=== PATIENT | male | born 1940 | race Caucasian/White ===

== ENCOUNTER 2018-12-16 12:54 | Observation (INO) ==
--- NOTE | 2018-12-16 13:00 | Emergency Department Note ---
Disposition Clinical Impression: Synovitis, Septic arthritis of right foot Disposition: Admitted As Inpatient Condition: Fair Time of Disposition: 19:47 General Adult HPI - General Stated complaint: Anemia Time Seen by Provider: 12/16/18 12:56 - Related Data Home Medications Medication Instructions Recorded Confirmed Ferrous Gluconate 324 mg PO DAILY 12/16/18 12/16/18 OxyCODONE/APAP 5/325 [Percocet 1 each PO Q8HR PRN 12/16/18 12/16/18 5/325 MG] Tamsulosin HCl [Flomax] 0.4 mg PO DAILY 12/16/18 12/16/18 Allergies Allergy/AdvReac Type Severity Reaction Status Date / Time No Known Allergies Allergy Verified 12/16/18 13:13 Course Vital Signs Temperature 98.9 F 12/16/18 12:58 Pulse Rate 65 12/16/18 12:58 Respiratory Rate 18 12/16/18 12:58 Blood Pressure 148/73 12/16/18 12:58 O2 Sat by Pulse Oximetry 95 12/16/18 12:58 Temperature 98.7 F 12/16/18 22:22 Pulse Rate 72 12/16/18 22:22 Respiratory Rate 14 12/16/18 22:22 Blood Pressure 125/73 12/16/18 22:22 O2 Sat by Pulse Oximetry 95 12/16/18 22:22 Oxygen Delivery Oxygen Delivery Room Air Medical Decision Making - Lab Data Result diagrams: 12/16/18 13:20 12/16/18 13:20 Lab Results 12/16/18 12/16/18 12/16/18 Range/Units 13:20 13:20 13:30 WBC 7.8 (4.3-11.1) K/mcL RBC 3.04 L (4.19-5.50) M/mcL Hgb 7.2 L (12.9-16.9) g/dL Hct 25.0 L (37.5-50.1) % MCV 82.2 L (83.0-100.0) fL MCH 23.7 L (28.0-33.3) pg MCHC 28.8 L (31.6-35.5) g/dL RDW 16.8 H (11.5-14.5) % Plt Count 486 H (140-400) K/mcL MPV 9.0 L (9.4-12.4) fL Immature Gran % 0.3 (0-4) % Seg Neutrophils % 60.6 % Lymphocytes % 22.8 % Monocytes % 13.6 % Eosinophils % 2.4 % Basophils % 0.3 % Neutrophils # 4.7 (1.6-8.9) K/mcL Lymphocytes # 1.8 (0.6-4.6) K/mcL Monocytes # 1.1 (0.0-1.3) K/mcL Eosinophils # 0.2 (0.0-0.6) K/mcL Basophils # 0.0 (0.0-0.2) K/mcL Platelet Estimate Slight increase H (Normal) Hypochromasia Present A (Not Present) Ovalocytes 1+ A (Not Present) Sodium 135 L (136-145) mEq/L Potassium 4.1 (3.5-5.1) mEq/L Chloride 102 (98-107) mEq/L Carbon Dioxide 26 (23-29) mEq/L BUN 17 (8-23) mg/dL Creatinine 0.97 (0.70-1.30) mg/dL Est GFR ( Amer) > 60 (> 60) Est GFR (Non-Af Amer) > 60 (> 60) BUN/Creatinine Ratio 18 (6-26) Glucose 159 H (70-105) mg/dL Calculated Osmolality 285 (280-300) Calcium 8.7 (8.6-10.3) mg/dL Total Bilirubin 0.4 (0.3-1.0) mg/dL Direct Bilirubin 0.2 (0.0-0.2) mg/dL Indirect Bilirubin 0.2 (0.0-1.2) mg/dL AST 18 (13-39) Units/L ALT 10 (7-52) Units/L Alkaline Phosphatase 86 (34-104) Units/L Troponin I 0.03 (< 0.04) ng/mL Serum Total Protein 6.7 (6.4-8.9) g/dL Albumin 3.4 L (3.5-5.7) g/dL Globulin 3.3 (2.4-3.5) g/dL Albumin/Globulin Ratio 1.0 L (1.1-2.2) Lipase 12 (11-82) Units/L Stool Occult Bld Scrn Negative (Negative) Blood Type Antibody Screen 07/19/19 Range/Units 15:50 WBC (4.3-11.1) K/mcL RBC (4.19-5.50) M/mcL Hgb (12.9-16.9) g/dL Hct (37.5-50.1) % MCV (83.0-100.0) fL MCH (28.0-33.3) pg MCHC (31.6-35.5) g/dL RDW (11.5-14.5) % Plt Count (140-400) K/mcL MPV (9.4-12.4) fL Immature Gran % (0-4) % Seg Neutrophils % % Lymphocytes % % Monocytes % % Eosinophils % % Basophils % % Neutrophils # (1.6-8.9) K/mcL Lymphocytes # (0.6-4.6) K/mcL Monocytes # (0.0-1.3) K/mcL Eosinophils # (0.0-0.6) K/mcL Basophils # (0.0-0.2) K/mcL Platelet Estimate (Normal) Hypochromasia (Not Present) Ovalocytes (Not Present) Sodium (136-145) mEq/L Potassium (3.5-5.1) mEq/L Chloride (98-107) mEq/L Carbon Dioxide (23-29) mEq/L BUN (8-23) mg/dL Creatinine (0.70-1.30) mg/dL Est GFR ( Amer) (> 60) Est GFR (Non-Af Amer) (> 60) BUN/Creatinine Ratio (6-26) Glucose (70-105) mg/dL Calculated Osmolality (280-300) Calcium (8.6-10.3) mg/dL Total Bilirubin (0.3-1.0) mg/dL Direct Bilirubin (0.0-0.2) mg/dL Indirect Bilirubin (0.0-1.2) mg/dL AST (13-39) Units/L ALT (7-52) Units/L Alkaline Phosphatase (34-104) Units/L Troponin I (< 0.04) ng/mL Serum Total Protein (6.4-8.9) g/dL Albumin (3.5-5.7) g/dL Globulin (2.4-3.5) g/dL Albumin/Globulin Ratio (1.1-2.2) Lipase (11-82) Units/L Stool Occult Bld Scrn (Negative) Blood Type O NEGATIVE Antibody Screen NEGATIVE Attestation Statement - Attestation Attestation: I reviewed the residents documentation and agree with the residents assessment and plan of care. I have personally had face to face time with the patient. (Brief History, Brief Exam, and MDM) I personally supervised and was present for the elliott/critical portions of the following procedures completed by the resident: (add procedures performed here). [id number] time provided Patient arrives as a transfer from the [facility] for concern of anemia. Patient takes no blood thinners. He denies hematochezia or melena. His right foot is markedly swollen and he states that this has been that way for many years.
[2018-12-16] MEDS ORDERED: Isovue-370 500 ML BOTTLE IVP ONE ×2 (13:06→13:10)
--- NOTE | 2018-12-16 13:07 | Emergency Department Note ---
Disposition Clinical Impression: Synovitis Septic arthritis of right foot Qualifiers: Septic arthritis organism: due to unspecified organism Qualified Code(s): M00.9 - Pyogenic arthritis, unspecified Disposition: Admitted As Inpatient Condition: Fair Time of Disposition: 19:47 General Adult HPI - General Stated complaint: Anemia Time Seen by Provider: 12/16/18 12:56 Nursing Notes Reviewed: Yes Vital Signs Reviewed: Yes - History of Present Illness HPI Narrative: 78-year-old male presents emergency department with concern for anemia, right lower foot swelling and redness. Patient denies any history of diabetes mellitus, but states that he has had some issues with his foot for quite some time now. It has gotten worse over the last week. Patient reports history of GI bleed, but not actively bleeding at this time. Patient also reports some epigastric discomfort. States that he feels as if his abdomen has been growing. - Related Data Home Medications Medication Instructions Recorded Confirmed Ferrous Gluconate 324 mg PO DAILY 12/16/18 12/16/18 OxyCODONE/APAP 5/325 [Percocet 1 each PO Q8HR PRN 12/16/18 12/16/18 5/325 MG] Tamsulosin HCl [Flomax] 0.4 mg PO DAILY 12/16/18 12/16/18 Allergies Allergy/AdvReac Type Severity Reaction Status Date / Time No Known Allergies Allergy Verified 12/16/18 13:13 All systems ED: reviewed and negative except as stated. Review of Systems: As Per HPI Constitutional: Denies: fever Cardiovascular: Denies: chest pain Respiratory: Denies: cough, dyspnea Gastrointestinal: Reports: abdominal pain. Denies: nausea, vomiting, melena, hematochezia Genitourinary: Denies: urgency, dysuria, frequency Musculoskeletal: Reports: other (Right foot pain and swelling) Neurological: Denies: numbness, paresthesias Past Medical History - Past Medical History Attestation: Yes The following information was validated with the patient. Physical Exam - General Limitations: no limitations General appearance: alert, in no apparent distress - Head Head exam: normocephalic - Eye Eye exam: Present: EOMI. Absent: scleral icterus - ENT ENT exam: mucous membranes moist - Neck Neck exam: Present: trachea midline - Chest Chest inspection: Present: symmetric chest wall rise - Respiratory Respiratory exam: Present: normal lung sounds bilaterally. Absent: respiratory distress, accessory muscle use - Cardiovascular Cardiovascular exam: Present: regular rate, normal rhythm, normal heart sounds - Abdominal Exam Abdominal exam: Present: soft, Non-Tender. Absent: distention, guarding, rebound, rigidity - Extremities Exam Extremities exam: Present: normal capillary refill, other (Right foot appears very swollen, there is an opening on the first MTP without drainage, erythema.) Course Vital Signs Temperature 98.9 F 12/16/18 12:58 Pulse Rate 65 12/16/18 12:58 Respiratory Rate 18 12/16/18 12:58 Blood Pressure 148/73 12/16/18 12:58 O2 Sat by Pulse Oximetry 95 12/16/18 12:58 Temperature 98.6 F 12/16/18 19:00 Pulse Rate 79 12/16/18 19:00 Respiratory Rate 14 12/16/18 19:00 Blood Pressure 135/77 12/16/18 19:00 O2 Sat by Pulse Oximetry 92 12/16/18 19:00 Oxygen Delivery Oxygen Delivery Room Air Medical Decision Making - [facility] Narrative Medical decision making narrative: 78-year-old male presents emergency Department with right foot swelling, epigastric abdominal discomfort, concern for anemia. Patient hemodynamically stable not in acute distress. Obtain CBC, Hemoccult, CT scan of abdomen and pelvis, CT scan of the right lower extremity. CT scan of abdomen and pelvis revealed no evidence of acute intra-abdominal or pelvic abnormality. This CT revealed collapse of the midfoot and concern for extensive synovitis as well as septic arthritis. I spoke with the urology nurse cardiac monitor technician who stated to start vancomycin and Zosyn and he will see the patient on the floor. Patient hemodynamically stable at that time. Abdomen/Pelvis CT 12/16/18 13:05 IMPRESSION: 1. No acute intra-abdominal process identified. 2. Redemonstration of colonic interposition. Correlate clinically to exclude Chilaiditi syndrome. 3. Moderate amount of stool present throughout the colon. 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 Extensive synovitis with soft tissue swelling also likely related to neuropathic arthropathy. Superimposed septic arthritis and cellulitis is in the differential. 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 D/ / 12/16/2018 15:46:00 Bart Brown MD / umberto Interpreting Provider: Bart Brown MD Chest X-Ray 12/16/18 19:18 IMPRESSION: No acute cardiopulmonary disease. D/ / Franki Marks MD / Franki Marks MD Interpreting Provider: Franki Marks MD - Lab Data Result diagrams: 12/16/18 13:20 12/16/18 13:20 Lab Results 12/16/18 12/16/18 12/16/18 Range/Units 13:20 13:20 13:30 WBC 7.8 (4.3-11.1) K/mcL RBC 3.04 L (4.19-5.50) M/mcL Hgb 7.2 L (12.9-16.9) g/dL Hct 25.0 L (37.5-50.1) % MCV 82.2 L (83.0-100.0) fL MCH 23.7 L (28.0-33.3) pg MCHC 28.8 L (31.6-35.5) g/dL RDW 16.8 H (11.5-14.5) % Plt Count 486 H (140-400) K/mcL MPV 9.0 L (9.4-12.4) fL Immature Gran % 0.3 (0-4) % Seg Neutrophils % 60.6 % Lymphocytes % 22.8 % Monocytes % 13.6 % Eosinophils % 2.4 % Basophils % 0.3 % Neutrophils # 4.7 (1.6-8.9) K/mcL Lymphocytes # 1.8 (0.6-4.6) K/mcL Monocytes # 1.1 (0.0-1.3) K/mcL Eosinophils # 0.2 (0.0-0.6) K/mcL Basophils # 0.0 (0.0-0.2) K/mcL Platelet Estimate Slight increase H (Normal) Hypochromasia Present A (Not Present) Ovalocytes 1+ A (Not Present) Sodium 135 L (136-145) mEq/L Potassium 4.1 (3.5-5.1) mEq/L Chloride 102 (98-107) mEq/L Carbon Dioxide 26 (23-29) mEq/L BUN 17 (8-23) mg/dL Creatinine 0.97 (0.70-1.30) mg/dL Est GFR ( Amer) > 60 (> 60) Est GFR (Non-Af Amer) > 60 (> 60) BUN/Creatinine Ratio 18 (6-26) Glucose 159 H (70-105) mg/dL Calculated Osmolality 285 (280-300) Calcium 8.7 (8.6-10.3) mg/dL Total Bilirubin 0.4 (0.3-1.0) mg/dL Direct Bilirubin 0.2 (0.0-0.2) mg/dL Indirect Bilirubin 0.2 (0.0-1.2) mg/dL AST 18 (13-39) Units/L ALT 10 (7-52) Units/L Alkaline Phosphatase 86 (34-104) Units/L Troponin I 0.03 (< 0.04) ng/mL Serum Total Protein 6.7 (6.4-8.9) g/dL Albumin 3.4 L (3.5-5.7) g/dL Globulin 3.3 (2.4-3.5) g/dL Albumin/Globulin Ratio 1.0 L (1.1-2.2) Lipase 12 (11-82) Units/L Stool Occult Bld Scrn Negative (Negative) Blood Type Antibody Screen 12/16/18 Range/Units 15:50 WBC (4.3-11.1) K/mcL RBC (4.19-5.50) M/mcL Hgb (12.9-16.9) g/dL Hct (37.5-50.1) % MCV (83.0-100.0) fL MCH (28.0-33.3) pg MCHC (31.6-35.5) g/dL RDW (11.5-14.5) % Plt Count (140-400) K/mcL MPV (9.4-12.4) fL Immature Gran % (0-4) % Seg Neutrophils % % Lymphocytes % % Monocytes % % Eosinophils % % Basophils % % Neutrophils # (1.6-8.9) K/mcL Lymphocytes # (0.6-4.6) K/mcL Monocytes # (0.0-1.3) K/mcL Eosinophils # (0.0-0.6) K/mcL Basophils # (0.0-0.2) K/mcL Platelet Estimate (Normal) Hypochromasia (Not Present) Ovalocytes (Not Present) Sodium (136-145) mEq/L Potassium (3.5-5.1) mEq/L Chloride (98-107) mEq/L Carbon Dioxide (23-29) mEq/L BUN (8-23) mg/dL Creatinine (0.70-1.30) mg/dL Est GFR ( Amer) (> 60) Est GFR (Non-Af Amer) (> 60) BUN/Creatinine Ratio (6-26) Glucose (70-105) mg/dL Calculated Osmolality (280-300) Calcium (8.6-10.3) mg/dL Total Bilirubin (0.3-1.0) mg/dL Direct Bilirubin (0.0-0.2) mg/dL Indirect Bilirubin (0.0-1.2) mg/dL AST (13-39) Units/L ALT (7-52) Units/L Alkaline Phosphatase (34-104) Units/L Troponin I (< 0.04) ng/mL Serum Total Protein (6.4-8.9) g/dL Albumin (3.5-5.7) g/dL Globulin (2.4-3.5) g/dL Albumin/Globulin Ratio (1.1-2.2) Lipase (11-82) Units/L Stool Occult Bld Scrn (Negative) Blood Type O NEGATIVE Antibody Screen NEGATIVE - EKG Data EKG #1 EKG attestation: Yes I reviewed and interpreted this EKG. EKG results narrative: 13:24 Heart rate 70 bpm, SC interval 175 ms, QRS duration 155 ms, QT 457 ms, but there is deviation. Sinus rhythm with no ischemic ST changes. Evidence of a left bundle-branch block. Same as previous ECG.
[2018-12-16 13:45] LABS: Hemoglobin 7.2 g/dL (12.9-16.9); Platelet Count 486 K/mcL (140-400)
[2018-12-16 13:46] LABS: Basophils % 0.3 %; Eosinophils # 0.2 K/mcL (0.0-0.6); Eosinophils % 2.4 %; Immature Granulocytes % 0.3 % (0-4); Lymphocytes # 1.8 K/mcL (0.6-4.6); Lymphocytes % 22.8 %; Mean Corpuscular HGB Conc 28.8 g/dL (31.6-35.5); Mean Corpuscular Hemoglobin 23.7 pg (28.0-33.3); Mean Corpuscular Volume 82.2 fL (83.0-100.0); Monocytes # 1.1 K/mcL (0.0-1.3); Monocytes % 13.6 %; Red Blood Count 3.04 M/mcL (4.19-5.50); Red Cell Distribution Width 16.8 % (11.5-14.5); Segmented Neutrophils % 60.6 %; White Blood Count 7.8 K/mcL (4.3-11.1)
[2018-12-16 13:50] LABS: Neutrophils # 4.7 K/mcL (1.6-8.9)
[2018-12-16 14:14] LABS: BUN/Creatinine Ratio 18 (6-26); Blood Urea Nitrogen 17 mg/dL (8-23); Calcium 8.7 mg/dL (8.6-10.3); Carbon Dioxide 26 mEq/L (23-29); Chloride 102 mEq/L (98-107); Glucose 159 mg/dL (70-105); Osmolality,Calculated 285 (280-300); Potassium 4.1 mEq/L (3.5-5.1); Sodium 135 mEq/L (136-145); Troponin I 0.03 ng/mL (< 0.04); eGFR For African Americans > 60 (> 60); eGFR For Non-African Americans > 60 (> 60)
[2018-12-16 15:15] LABS: Alanine Aminotransferase 10 Units/L (7-52); Albumin 3.4 g/dL (3.5-5.7); Alkaline Phosphatase 86 Units/L (34-104); Aspartate Amino Transferase 18 Units/L (13-39); Bilirubin,Direct 0.2 mg/dL (0.0-0.2); Bilirubin,Indirect 0.2 mg/dL (0.0-1.2); Bilirubin,Total 0.4 mg/dL (0.3-1.0); Globulin 3.3 g/dL (2.4-3.5); Lipase 12 Units/L (11-82); Total Protein 6.7 g/dL (6.4-8.9)
[2018-12-16 15:21] LABS: Hypochromasia Present (Not Present)
[2018-12-16 15:24] LABS: Ovalocytes 1+ (Not Present)
[2018-12-16] MEDS ORDERED: Piperacillin/Tazobactam 3.375 GM in Water for inj. (sterile) 20 ML IVP ONE (16:02)
[2018-12-16] MEDS ORDERED: *HR* FentaNYL (PF) 100 MCG/2 ML VIAL IVP ONE (16:10)
[2018-12-16] MEDS ORDERED: Piperacillin/Tazobactam 3.375 GM in 0.9 % Sodium Chloride Mini Bag 100 ML IVPB ONE (16:20)
[2018-12-16] MEDS ORDERED: Naloxone 0.4 MG/ML INJ IVP PRN (18:42)
--- NOTE | 2018-12-16 18:57 | Internal Med History&Physical ---
Date of Encounter: 12/16/18 Time of Encounter: 18:57 Internal Medicine - H&P: [facility] History of present illness: Mr. Red is a 78 year old male with a history of Neuropathic Osteoarthropathy and GI Bleed who presented with a 3 day history of right foot pain and swelling. He describes the pain as burning, 8/10 in intensity with no aggravating or relieving factors. He denies fevr, chills, nausea, vomiting and rrecent foot trauma. [facility] was informed that his Hb was low and needed further evaluation. He admits that he has been experiencing fatigue and dyspnea on exertion over the last month. He has also lost about 70 pounds in the last 10 years unintentionally. He denies palpitations and dizzines. He denies melena but he has occasional epigastric pain which is worse after meals. Past Med Surg Social Fam HX - Past Medical History Medical history: arthritis, cancer, hyperlipidemia Additional medical history: Anemia, osteomylitis, gout, Charcot,s arthropathy Psychiatric history: no psych history - Past Surgical History Additional surgical history: Left foot sx - Social History Smoking Status: Former smoker Smokeless Tobacco Status: No Alcohol use: occasionally Drug use: none Internal Medicine - H&P: Meds Ferrous Gluconate 324 mg PO DAILY 12/16/18 [History] OxyCODONE/APAP 5/325 [Percocet 5/325 MG] 1 each PO Q8HR PRN 12/16/18 [History] Tamsulosin HCl [Flomax] 0.4 mg PO DAILY 12/16/18 [History] Allergy/AdvReac Type Severity Reaction Status Date / Time No Known Allergies Allergy Verified 12/16/18 13:13 All Systems PM: A 10-system review of systems was performed and is negative for pertinent findings except as documented above in the HPI. Review of systems: GENERAL: No fatigue HEENT: No rhinorrhea, No sore throat, No ear pain or discharge, No dysphagia or odynophagia PULMONARY: No cough, Admits dyspnea on exertion. Denies cough and chest pain CARDIOVASCULAR:no palpitations, No PND, No orthopnea GASTROINTESTINAL: Epigastric pain, No nausea, No vomiting, he has been constipated recently MUSKULOSKELETAL: Right leg pain and swelling INTEGUMENTARY: No new skin lesions NERVOUS SYSTEM: No Dizziness, No weakness, No slurred speech, No diplopia or blurred/ loss vision,, - Constitutional Vitals: Temp Pulse Resp BP Pulse Ox 37.2 C 74 18 146/78 97 12/16/18 12:58 12/16/18 16:26 12/16/18 16:26 12/16/18 16:26 12/16/18 16:26 Exam: GENERAL: Not in distress. Alert and Oriented HEENT: EOMI, PERRLA MOUTH: Mucosa is moist and not pale NECK:No JVD, No lymph nodes. CHEST AND LUNGS: Normal breath sounds, no wheezes or crackles HEART: S1 and S2 normal, no murmurs ABDOMEN: Soft, nontender, no organomegaly GENITOURINARY: SKIN: Normal color, no rahses, no lesions EXTREMITIES: Both feet are deformed due to osteoarthropathy. Right foot is more swelling than left. Erythema extending from right foot up to just below his r ight knee. Purulent discharge from right foot lesion above the right metatarsal joint. NEUROLOGICAL: Normal cognition, normal motor exam. Internal Med - H&P Results - Labs CBC & Chem 7: 12/16/18 13:20 12/16/18 13:20 Labs: Short CBC 12/16/18 Range/Units 13:20 WBC 7.8 (4.3-11.1) K/mcL Hgb 7.2 L (12.9-16.9) g/dL Hct 25.0 L (37.5-50.1) % Plt Count 486 H (140-400) K/mcL Neutrophils # 4.7 (1.6-8.9) K/mcL BMP 12/16/18 13:20 Sodium 135 L Potassium 4.1 Chloride 102 Carbon Dioxide 26 BUN 17 Creatinine 0.97 Glucose 159 H Calcium 8.7 Cardiac Enzymes 12/16/18 Range/Units 13:20 Troponin I 0.03 (< 0.04) ng/mL Liver Function 12/16/18 Range/Units 13:20 Total Bilirubin 0.4 (0.3-1.0) mg/dL Direct Bilirubin 0.2 (0.0-0.2) mg/dL AST 18 (13-39) Units/L ALT 10 (7-52) Units/L Alkaline Phosphatase 86 (34-104) Units/L Albumin 3.4 L (3.5-5.7) g/dL - Impressions ITS Impressions Abdomen/Pelvis CT 12/16/18 13:05 IMPRESSION: 1. No acute intra-abdominal process identified. 2. Redemonstration of colonic interposition. Correlate clinically to exclude Chilaiditi syndrome. 3. Moderate amount of stool present throughout the colon. 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 Extensive synovitis with soft tissue swelling also likely related to neuropathic arthropathy. Superimposed septic arthritis and cellulitis is in the differential. 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 D/ / 12/16/2018 15:46:00 Bart Brown MD / umberto Interpreting Provider: Bart Brown MD - Assessment and Plan (1) Cellulitis of right lower extremity Current Visit: Yes Status: Acute Assessment and plan: Right foot is swollen with erythematous skin extending from foot to below the knee Patient denies fever and chills Vitals are stable CT scan of the extremity did not reveal underlying collection or gas Will continue vancomycin that was initiated in the ER Consult podiatry (2) Microcytic anemia Current Visit: Yes Status: Acute Assessment and plan: Hemoglobin of 7.[address] of the abdomen did not reveal acute process or mass We will order an iron profile Fecal Hemoccult test (3) History of GI bleed Current Visit: Yes Status: Chronic Assessment and plan: Currently no evidence of active bleeding Patient is vitally stable He denies dark stools and hematemesis We will order Hemoccult test and monitor H&H (4) Gastritis Current Visit: Yes Status: Chronic Assessment and plan: Patient complains of intermittent epigastric pain Usually worse after meals We will give PPIs Qualifiers: Chronicity: chronic Gastritis bleeding: without bleeding Qualified Code(s): K29.50 - Unspecified chronic gastritis without bleeding - Time Spent With Patient Total time spent is greater than 50% in coordination of care (as documented) at patient's floor/unit and/or counseling patient:
[2018-12-16] MEDS: *HR* Heparin 5,000 UNIT/ML VIAL SQ SCH (22:50)
[2018-12-17 04:48] LABS: Basophils % 0.3 %; Eosinophils # 0.3 K/mcL (0.0-0.6); Eosinophils % 4.2 %; Hematocrit 23.4 % (37.5-50.1); Hemoglobin 6.8 g/dL (12.9-16.9); Immature Granulocytes % 0.2 % (0-4); Lymphocytes # 1.6 K/mcL (0.6-4.6); Lymphocytes % 26.5 %; Mean Corpuscular HGB Conc 29.1 g/dL (31.6-35.5); Mean Corpuscular Hemoglobin 23.2 pg (28.0-33.3); Mean Corpuscular Volume 79.9 fL (83.0-100.0); Monocytes # 0.9 K/mcL (0.0-1.3); Monocytes % 14.1 %; Neutrophils # 3.4 K/mcL (1.6-8.9); Platelet Count 464 K/mcL (140-400); Red Blood Count 2.93 M/mcL (4.19-5.50); Red Cell Distribution Width 16.7 % (11.5-14.5); Segmented Neutrophils % 54.7 %; White Blood Count 6.2 K/mcL (4.3-11.1)
[2018-12-17] MEDS: *HR* Heparin 5,000 UNIT/ML VIAL SQ SCH ×2 (05:25→14:17)
--- NOTE | 2018-12-17 05:35 | Event Note ---
Date of Encounter: 12/17/18 Time of Encounter: 05:22 Alerted by patient's nurse MERLE Ingram that H&H this morning was 6.8 and 23.4, down from 7.2 and 25.0 yesterday. Patient was typed and screened on 12/16/18 and has blood type O- with negative antibody screen. Transfusion order placed for 2 units PRBCs and nurse informed. Cardiac monitoring ordered. VS at this time: BP 134/71, HR 80, SPO2 91%, temperature 98.5F. Nurse reported pt. is lethargic with no change since yesterday. Supplemental O2 w/titration ordered and pts. nurse instructed to place 2L via NC on pt. Nurse instructed to continue monitoring the pt. very closely and alert me immediately of any adverse changes.
--- NOTE | 2018-12-17 09:56 | Internal Med Progress Note ---
Hospitalist Progress Note - Encounter Date of Encounter: 12/17/18 Time of Encounter: 09:56 - Subjective Interval History: Patient's hemogloin came back as 6.8. He denies palpitations, chest pain and SOB at the moment. - Exam Vitals: Temp Pulse Resp BP Pulse Ox 37.3 C 84 14 132/65 96 12/17/18 03:16 12/17/18 03:16 12/17/18 03:16 12/17/18 03:16 12/17/18 03:16 Exam: GENERAL: Not in distress. Alert and Oriented HEENT: EOMI, PERRLA MOUTH: Mucosa is moist and not pale NECK:No JVD, No lymph nodes. 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 Right foot is more swollen than left. Erythema extending from right foot up to just below his right knee. Purulent discharge from right foot lesion above the right metatarsal joint. NEUROLOGICAL: Normal cognition, normal motor exam. - Assessment and Plan (1) Cellulitis of right lower extremity Current Visit: Yes Status: Acute Assessment and Plan: -Physical findings remain the same. -Vitals are stable -Will continue vancomycin -Stable renal function -Podiatry consulted (2) Iron deficiency anemia Current Visit: Yes Status: Acute Assessment and Plan: Hemoglobin of 6.8 With low MCV 79.9 Iron profile reveals a serum iron of <[address] of the abdomen did not reveal acute process or mass Fecal Hemoccult test negative Will consult GI for a colonoscopy due to age, ERLIN and weight loss. (3) History of GI bleed Current Visit: Yes Status: Chronic Assessment and Plan: Currently no evidence of active bleeding Patient is vitally stable He denies dark stools and hematemesis Will continue to monitor H&H (4) Gastritis Current Visit: Yes Status: Chronic Assessment and Plan: Patient complains of intermittent epigastric pain Usually worse after meals We will give PPIs Internal Medicine: Result - Labs CBC & Chem 7: 12/17/18 04:22 12/16/18 13:20 Labs: Short CBC 12/16/18 12/17/18 Range/Units 13:20 04:22 WBC 7.8 6.2 (4.3-11.1) K/mcL Hgb 7.2 L 6.8 L (12.9-16.9) g/dL Hct 25.0 L 23.4 L (37.5-50.1) % Plt Count 486 H 464 H (140-400) K/mcL Neutrophils # 4.7 3.4 (1.6-8.9) K/mcL BMP 12/16/18 13:20 Sodium 135 L Potassium 4.1 Chloride 102 Carbon Dioxide 26 BUN 17 Creatinine 0.97 Glucose 159 H Calcium 8.7 Cardiac Enzymes 12/16/18 Range/Units 13:20 Troponin I 0.03 (< 0.04) ng/mL Liver Function 12/16/18 Range/Units 13:20 Total Bilirubin 0.4 (0.3-1.0) mg/dL Direct Bilirubin 0.2 (0.0-0.2) mg/dL AST 18 (13-39) Units/L ALT 10 (7-52) Units/L Alkaline Phosphatase 86 (34-104) Units/L Albumin 3.4 L (3.5-5.7) g/dL - Impressions Impressions Abdomen/Pelvis CT 12/16/18 13:05 IMPRESSION: 1. No acute intra-abdominal process identified. 2. Redemonstration of colonic interposition. Correlate clinically to exclude Chilaiditi syndrome. 3. Moderate amount of stool present throughout the colon. 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 Extensive synovitis with soft tissue swelling also likely related to neuropathic arthropathy. Superimposed septic arthritis and cellulitis is in the differential. 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 D/ / 12/16/2018 15:46:00 Bart Brown MD / umberto Interpreting Provider: Bart Brown MD Chest X-Ray 12/16/18 19:18 IMPRESSION: No acute cardiopulmonary disease. D/ / Franki Marks MD / Franki Marks MD Interpreting Provider: Franki Marks MD Consult Discharge Plan - Plan [facility]errals[facility]Primary Care Provider[facility] - (4) Gastritis Qualifiers: Chronicity: chronic Gastritis bleeding: without bleeding Qualified Code(s): K29.50 - Unspecified chronic gastritis without bleeding
[2018-12-17] MEDS ORDERED: 0.9 % Sodium Chloride 250 ML ONE ×2 (10:14→15:16)
[2018-12-17 10:28] LABS: Iron < 10 mcg/dL (65-175); Transferrin 334 mg/dL (203-362)
[2018-12-17] MEDS: *HR* OxyCODONE/APAP 5/325 TABLET PO PRN ×2 (11:08→17:52)
[2018-12-17] MEDS: Pantoprazole 40 MG in 0.9 % Sodium Chloride 50 ML IVPB SCH (14:07)
--- NOTE | 2018-12-18 00:35 | Electrocardiograph Report ---
[place] [employer] [facility] Test Date: 2018-12-16 Pat Name: Toi Red Department: EXAM22 Room: [facility] Gender: M Claim Specialist: : [id number] Requested By: Felipe Russell Order Number: [id number] Reading MD: Gela Murillo Measurements Intervals [place] Rate: 78 P: 69 DE: 175 QRS: -5 QRSD: 155 T: 82 QT: 457 QTc: 521 Interpretive Statements SINUS ARRHYTHMIA Left bundle branch block Electronically Signed On 12-18-2018 0:34:21 EDT by Gela Murillo
[2018-12-18 01:28] LABS: Basophils % 0.3 %; Eosinophils # 0.2 K/mcL (0.0-0.6); Eosinophils % 1.8 %; Hematocrit 29.9 % (37.5-50.1); Immature Granulocytes % 0.2 % (0-4); Lymphocytes # 2.1 K/mcL (0.6-4.6); Lymphocytes % 23.4 %; Mean Corpuscular HGB Conc 30.4 g/dL (31.6-35.5); Mean Corpuscular Hemoglobin 24.9 pg (28.0-33.3); Mean Corpuscular Volume 81.7 fL (83.0-100.0); Monocytes # 1.1 K/mcL (0.0-1.3); Monocytes % 12.3 %; Neutrophils # 5.7 K/mcL (1.6-8.9); Platelet Count 464 K/mcL (140-400); Red Blood Count 3.66 M/mcL (4.19-5.50); Red Cell Distribution Width 16.2 % (11.5-14.5); White Blood Count 9.1 K/mcL (4.3-11.1)
[2018-12-18 01:31] LABS: Hemoglobin 9.1 g/dL (12.9-16.9)
[2018-12-18 01:45] LABS: BUN/Creatinine Ratio 11 (6-26); Blood Urea Nitrogen 9 mg/dL (8-23); Carbon Dioxide 28 mEq/L (23-29); Chloride 105 mEq/L (98-107); Glucose 108 mg/dL (70-105); Osmolality,Calculated 283 (280-300); Potassium 4.3 mEq/L (3.5-5.1); Sodium 137 mEq/L (136-145); eGFR For African Americans > 60 (> 60); eGFR For Non-African Americans > 60 (> 60)
[2018-12-18] MEDS: Pantoprazole 40 MG in 0.9 % Sodium Chloride 50 ML IVPB SCH (10:25)
--- NOTE | 2018-12-18 15:16 | Discharge Summary ---
- NOTES TO OUTPATIENT PROVIDER Notes to Outpatient Provider: Patient needs a colonoscopy to evaluate ERLIN. He also needs to see a greenhouse staff for his right foot. Orders not resulted at time of discharge: Pending orders 12/16/18 13:20 Culture,Blood [BC] Stat 12/16/18 18:55 Fecal Hemoccult [Occult Blood,Stool] [BF] Routine 12/18/18 16:00 Vancomycin,Trough Timed Date of Encounter: 12/18/18 Time of Encounter: 10:17 - Discharge Diagnosis (1) Cellulitis of right lower extremity Priority: Primary Status: Acute Assessment and Plan: -Female has cleared -Vitals are stable -No drainage observed - We will discharge on Bactrim - Follow up with podiatry as outpatient (2) Iron deficiency anemia Priority: Secondary Status: Acute Assessment and Plan: Hemoglobin is now 9.1 after 2 units of blood We will discharge on oral iron Follow-up with GI for possible colonoscopy Qualifiers: Iron deficiency anemia type: unspecified iron deficiency Qualified Code(s): D50.9 - Iron deficiency anemia, unspecified (3) History of GI bleed Priority: Secondary Status: Chronic (4) Gastritis Priority: Secondary Status: Chronic Qualifiers: Chronicity: chronic Gastritis bleeding: without bleeding Qualified Code(s): K29.50 - Unspecified chronic gastritis without bleeding Hospital course: Mr. Red is a 78 year old male Discharge discussed with: patient - Time Spent with Patient Total time spent providing and/or coordinating discharge services: Time spent: Greater than 30 minutes (34) - Discharge Medications Prescriptions: New Ferrous Sulfate 325 mg PO DAILY@0800 30 Days #30 tablet Tamsulosin [Flomax] 0.4 mg PO DAILY 30 Days #30 capsule Sulfamethoxazole/Trimeth DS [Bactrim Ds] 1 each PO BID 10 Days #20 tablet Continued OxyCODONE/APAP 5/325 [Percocet 5/325 MG] 1 each PO Q8HR PRN PRN Reason: Pain Home Medications: OxyCODONE/APAP 5/325 [Percocet 5/325 MG] 1 each PO Q8HR PRN 12/16/18 [History] Ferrous Sulfate 325 mg PO DAILY@0800 30 Days #30 tablet 12/18/18 [Rx] Sulfamethoxazole/Trimeth DS [Bactrim Ds] 1 each PO BID 10 Days #20 tablet 07/21/19 [Rx] Tamsulosin [Flomax] 0.4 mg PO DAILY 30 Days #30 capsule 12/18/18 [Rx] Allergies/Adverse Reactions: Allergy/AdvReac Type Severity Reaction Status Date / Time No Known Allergies Allergy Verified 12/18/18 12:49 Date of admission: 12/16/18 16:29 Primary care physician: PCP RENEE Consults: 12/16/18 18:48 Consult to Podiatry [CONS] Routine Consulting Provider: [facility] Reason for Consult: Right foot cellulitis. Possible underlying abscess Call Completed: Yes 12/17/18 12:12 Consult to Gastroenterology [CONS] Routine Consulting Provider: [facility] Reason for Consult: Elderly male, ERLIN, weight loss Call Completed: Yes - Constitutional Vitals: Temp Pulse Resp BP Pulse Ox 36.9 C 75 15 165/85 95 12/18/18 12:03 12/18/18 12:03 12/18/18 12:03 12/18/18 12:03 12/18/18 12:03 Exam: GENERAL: Not in distress. Alert and Oriented HEENT: EOMI, PERRLA MOUTH: Mucosa is moist and not pale NECK:No JVD, No lymph nodes. 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 Right foot is more swollen than left. Erythema extending from right foot up to just below his rig ht knee. Erythema on right foot and leg has cleared. No differential warmth, no tenderness NEUROLOGICAL: Normal cognition, normal motor exam. - Patient Status Disposition: Home, Self-Care Condition: Good Functional capacity at discharge: uses cane/walker Overall status at discharge: patient is progressing back to baseline - Discharge Instructions [facility] Care Provider[facility] - Forms: ED Satisfaction Letter - Diet and Activity Activity: increase activity as tolerated
[2018-12-18 16:01] VITALS: BP 166/87
--- NOTE | 2018-12-18 16:56 | Podiatry Consult Note ---
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 Patient states he should not have any further problems because the swelling is reduced his right foot and therefore his shoe should fit him "without causing another wound." #2 follow-up as outpatient History of Present Illness Chief complaint: Abrasion cellulitis of the right foot HPI: Mr. Red is a 78 year old male, admitted for an abrasion dorsal aspect first MTPJ right foot secondary to ill fitting shoes to the patient stating that he had significant swelling of his right foot. 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 Patient wears a double upright brace for ambulation. Patient has a history of left foot reconstruction per Dr. Riley approximate 7 years ago. Patient refuses any further discussion of surgical correction of his right foot. Patient states his feet became deformed because of "gout". No history of diabetes. Presently is without chest pain nausea vomiting Past Med Surg Social Fam HX - Past Medical History Medical history: arthritis, cancer, hyperlipidemia Additional medical history: Anemia, osteomylitis, gout, Charcot,s arthropathy Psychiatric history: no psych history - Past Surgical History Additional surgical history: Left foot sx - Social History Smoking Status: Former smoker Smokeless Tobacco Status: No Alcohol use: occasionally Drug use: none Medications and Allergies OxyCODONE/APAP 5/325 [Percocet 5/325 MG] 1 each PO Q8HR PRN 12/16/18 [History] Ferrous Sulfate 325 mg PO DAILY@0800 30 Days #30 tablet 12/18/18 [Rx] Sulfamethoxazole/Trimeth DS [Bactrim Ds] 1 each PO BID 10 Days #20 tablet 12/18/18 [Rx] Tamsulosin [Flomax] 0.4 mg PO DAILY 30 Days #30 capsule 12/18/18 [Rx] Allergy/AdvReac Type Severity Reaction Status Date / Time No Known Allergies Allergy Verified 12/18/18 12:49 All Systems Reviewed: The remainder of the systems were reviewed and are negative Physical Exam - Constitutional Vitals: Temp Pulse Resp BP Pulse Ox 99.0 F 81 15 166/87 94 12/18/18 16:00 12/18/18 16:00 12/18/18 16:00 12/18/18 16:00 12/18/18 16:00 General appearance: average body habitus, no acute distress - Skin Skin Temperature: Skin temperature is warm to warm from toes to tibia bilaterally Additional comments: There is a healed abrasion measuring approximately 1.8 cm in length 0.9 cm in width with a dry eschar dorsal aspect of #1 MTPJ right foot. No edema no erythema. No cellulitis lymphangitis or odor purulence or necrosis. There is no fluctuance and skin turgor is normal - Vascular Capillary Refill: Immediate Right Dorsalis Pedis: 1+ Left Dorsalis Pedis: 1+ Right Posterior Tibialis: 1+ Left Posterior Tibialis: 1+ - Ankle & Foot Alignment: hindfoot varus, forefoot varus Foot alignment: other (Patient exhibits a completely inverted right foot and medially dislocated right ankle although the ankle does function with dorsiflexion plantar flexion actively and passively. No pain no crepitation.) Results - Labs Result Diagrams: 12/18/18 00:57 12/18/18 00:57 Labs: Abnormal lab results RBC 3.66 M/mcL (4.19-5.50) L 12/18/18 00:57 Hgb 9.1 g/dL (12.9-16.9) L D 12/18/18 00:57 Hct 29.9 % (37.5-50.1) L 12/18/18 00:57 MCV 81.7 fL (83.0-100.0) L 12/18/18 00:57 MCH 24.9 pg (28.0-33.3) L 12/18/18 00:57 MCHC 30.4 g/dL (31.6-35.5) L 12/18/18 00:57 RDW 16.2 % (11.5-14.5) H 12/18/18 00:57 Plt Count 464 K/mcL (140-400) H 12/18/18 00:57 MPV 9.0 fL (9.4-12.4) L 12/18/18 00:57 Platelet Estimate Slight increase (Normal) H 12/16/18 13:20 Hypochromasia Present (Not Present) A 12/16/18 13:20 Ovalocytes 1+ (Not Present) A 12/16/18 13:20 Sodium 135 mEq/L (136-145) L 12/16/18 13:20 Glucose 108 mg/dL (70-105) H 12/18/18 00:57 Calcium 8.0 mg/dL (8.6-10.3) L 12/18/18 00:57 Iron < 10 mcg/dL (65-175) L 12/16/18 13:20 Albumin 3.4 g/dL (3.5-5.7) L 12/16/18 13:20 Albumin/Globulin Ratio 1.0 (1.1-2.2) L 12/16/18 13:20 Vancomycin Trough 11 mcg/mL (5-10) H 12/18/18 15:59 Crossmatch See Detail 12/16/18 15:50 H & H 12/18/18 Range/Units 00:57 Hgb 9.1 L D (12.9-16.9) g/dL Hct 29.9 L (37.5-50.1) % All other labs normal. Consult Discharge Plan - Plan [facility]errals: [facility] [Primary Care Provider] - Prescriptions: Sulfamethoxazole/Trimeth DS [Bactrim Ds] 1 each PO BID 10 Days #20 tablet Ferrous Sulfate 325 mg PO DAILY@0800 30 Days #30 tablet Tamsulosin [Flomax] 0.4 mg PO DAILY 30 Days #30 capsule
[2018-12-18] MEDS ORDERED: Aminoglycoside Consult 1 EACH MC ONE (18:34)
[2018-12-18] MEDS ORDERED: Sulfamethoxazole/Trimeth DS 1 EACH TABLET PO SCH (21:00)
== END 2018-12-18 18:35 | disposition home or self-care (01) ==
LOC: EMEROOARM 12:54 → 3NENU 12:54 → SUATTDRO 16:29 → 3NENU 18:04
PROVIDERS: ADMIT Student in an Organized Health Care Education/Training Program; ATTEND Internal Medicine

== ENCOUNTER 2020-05-30 12:24 | Inpatient (IN) ==
[2020-05-30 13:10] LABS: Bilirubin,Urine Negative (Negative); Blood,Urine Negative (Negative); Clarity,Urine Clear (Clear); Color,Urine Light-Yellow (Yellow); Glucose,Urine (UA) Normal (Normal); Ketones,Urine Negative (Negative); Leukocyte Esterase,Urine Negative (Negative); Nitrite,Urine Negative (Negative); Protein,Urine Negative (Neg-Trace); Urobilinogen,Urine Normal (Normal)
[2020-05-30] MEDS ORDERED: Isovue-370 500 ML BOTTLE IVP ONE (13:51)
[2020-05-30 13:55] LABS: Amphetamine Screen,Urine Negative ng/mL (Cutoff=1000); Barbiturate Screen,Urine Negative ng/mL (Cutoff=200); Benzodiazepines Screen,Urine Negative ng/mL (Cutoff=200); Cannabinoid Screen,Urine Negative ng/mL (Cutoff = 50); Cocaine Screen,Urine Negative ng/mL (Cutoff= 300); Opiate Screen,Urine Positive ng/mL (Cutoff=300); Phencyclidine Screen,Urine Negative ng/mL (Cutoff=25)
[2020-05-30] MEDS ORDERED: Aspirin 81 MG TAB.CHEW PO STA (14:01)
[2020-05-30 14:18] LABS: VBG HCO3 27 mEq/L (21-27); VBG PCO2 47 mmHg (41-51); VBG PH 7.37 pH Units (7.32-7.42); VBG PO2 50 mmHg (25-50)
[2020-05-30 14:23] LABS: Basophils % 0.2 %; Eosinophils % 0.1 %; Hemoglobin 7.7 g/dL (12.9-16.9); Nucleated Red Blood Cells 0.2 /100 WBC (0)
[2020-05-30 14:25] LABS: Hematocrit 29.1 % (37.5-50.1); Immature Granulocytes % 1.1 % (0-4); Lymphocytes % 8.4 %; Mean Corpuscular HGB Conc 26.5 g/dL (31.6-35.5); Mean Corpuscular Hemoglobin 17.4 pg (28.0-33.3); Mean Corpuscular Volume 65.7 fL (83.0-100.0); Mean Platelet Volume 8.9 fL (9.4-12.4); Monocytes # 0.8 K/mcL (0.0-1.3); Monocytes % 6.6 %; Neutrophils # 10.4 K/mcL (1.6-8.9); Platelet Count 486 K/mcL (140-400); Red Blood Count 4.43 M/mcL (4.19-5.50); Red Cell Distribution Width 18.8 % (11.5-14.5); Segmented Neutrophils % 83.6 %; White Blood Count 12.4 K/mcL (4.3-11.1)
[2020-05-30 14:26] LABS: INR 1.3; Prothrombin Time 14.9 Seconds (9.4-12.1)
[2020-05-30 14:29] LABS: Activated Partial Thrombo Time 23.5 Seconds (26.0-36.0)
[2020-05-30 14:49] LABS: Alanine Aminotransferase 12 Units/L (7-52); Albumin 3.8 g/dL (3.5-5.7); Alkaline Phosphatase 108 Units/L (34-104); Aspartate Amino Transferase 19 Units/L (13-39); BUN/Creatinine Ratio 13 (6-26); Bilirubin,Direct 0.2 mg/dL (0.0-0.2); Bilirubin,Indirect 0.6 mg/dL (0.0-1.0); Bilirubin,Total 0.8 mg/dL (0.3-1.0); Blood Urea Nitrogen 8 mg/dL (8-23); Calcium 9.4 mg/dL (8.6-10.3); Carbon Dioxide 26 mEq/L (23-29); Chloride 102 mEq/L (98-107); Ethanol < 10 mg/dL (Less than 10); Globulin 3.7 g/dL (2.4-3.5); Glucose 142 mg/dL (70-105); Osmolality,Calculated 287 (280-300); Potassium 3.8 mEq/L (3.5-5.1); Sodium 138 mEq/L (136-145); Total Protein 7.5 g/dL (6.4-8.9); Troponin I 0.08 ng/mL (< 0.04); eGFR For African Americans > 60 (> 60); eGFR For Non-African Americans > 60 (> 60)
[2020-05-30 14:58] LABS: Thyroid Stimulating Hormone 0.711 mcIU/mL (0.340-5.600)
[2020-05-30 15:03] LABS: Anisocytosis 1+ (Not Present); Microcytosis Present (Not Present); Platelet Estimate Normal (Normal); Poikilocytosis 1+ (Not Present)
[2020-05-30 15:04] LABS: Hypochromasia Present (Not Present)
[2020-05-30] MEDS ORDERED: *HR* LORazepam 2 MG/ML VIAL IM ONE (15:59)
[2020-05-30] MEDS ORDERED: Naloxone 0.4 MG/ML INJ IVP PRN (17:05)
[2020-05-30 18:09] LABS: Creatine Kinase 40 Units/L (30-223)
[2020-05-30] MEDS: *HR* Heparin 5,000 UNIT/ML VIAL SQ SCH (21:06)
[2020-05-30] MEDS ORDERED: *HR* LORazepam 0.5 MG TABLET PO ONE (22:54)
[2020-05-31 02:17] LABS: Eosinophils % 0.1 %; Red Cell Distribution Width 18.8 % (11.5-14.5)
[2020-05-31 02:19] LABS: Basophils % 0.3 %; Hematocrit 26.1 % (37.5-50.1); Hemoglobin 6.9 g/dL (12.9-16.9); Immature Granulocytes % 0.4 % (0-4); Lymphocytes # 1.6 K/mcL (0.6-4.6); Lymphocytes % 10.4 %; Mean Corpuscular HGB Conc 26.4 g/dL (31.6-35.5); Mean Corpuscular Hemoglobin 17.4 pg (28.0-33.3); Mean Corpuscular Volume 65.7 fL (83.0-100.0); Monocytes # 1.2 K/mcL (0.0-1.3); Monocytes % 7.6 %; Neutrophils # 12.7 K/mcL (1.6-8.9); Platelet Count 453 K/mcL (140-400); Red Blood Count 3.97 M/mcL (4.19-5.50); Segmented Neutrophils % 81.2 %; White Blood Count 15.6 K/mcL (4.3-11.1)
[2020-05-31 02:23] LABS: Basophils # 0.1 K/mcL (0.0-0.2)
[2020-05-31 02:36] LABS: BUN/Creatinine Ratio 18 (6-26); Blood Urea Nitrogen 10 mg/dL (8-23); Calcium 8.8 mg/dL (8.6-10.3); Carbon Dioxide 24 mEq/L (23-29); Chloride 104 mEq/L (98-107); Chol/HDL Ratio 2.8 (0-4.9); Cholesterol 108 mg/dL (< 200); Glucose 109 mg/dL (70-105); HDL Cholesterol 39 mg/dL (40-59); LDL Cholesterol,Calculated 54 mg/dL (< 100); Magnesium 1.8 mg/dL (1.6-2.6); Osmolality,Calculated 288 (280-300); Phosphorous 3.2 mg/dL (2.7-4.5); Potassium 3.4 mEq/L (3.5-5.1); Sodium 139 mEq/L (136-145); Triglycerides 77 mg/dL (< 150); eGFR For African Americans > 60 (> 60); eGFR For Non-African Americans > 60 (> 60)
[2020-05-31 03:30] LABS: Anisocytosis 1+ (Not Present); Hypochromasia Present (Not Present); Microcytosis Present (Not Present); Platelet Estimate Normal (Normal); Poikilocytosis 1+ (Not Present)
[2020-05-31] MEDS ORDERED: Haloperidol Lactate 5 MG/ML VIAL IM ONE (03:58)
[2020-05-31] MEDS: *HR* Heparin 5,000 UNIT/ML VIAL SQ SCH ×3 (04:04→20:10)
[2020-05-31 08:50] LABS: Estimated Average Glucose 154 mg/dl
[2020-05-31 09:25] LABS: Hematocrit 27.2 % (37.5-50.1); Hemoglobin 7.4 g/dL (12.9-16.9)
[2020-05-31 09:58] LABS: Iron < 10 mcg/dL (65-175); Transferrin 357 mg/dL (203-362)
[2020-05-31] MEDS: Aspirin 81 MG TAB.CHEW PO SCH (11:51)
[2020-05-31] MEDS: OLANZapine 10 MG VIAL IM PRN ×2 (11:51→23:53)
[2020-06-01 03:12] LABS: Basophils # 0.1 K/mcL (0.0-0.2); Basophils % 0.3 %; Hematocrit 28.5 % (37.5-50.1); Hemoglobin 7.6 g/dL (12.9-16.9); Immature Granulocytes % 0.6 % (0-4); Lymphocytes # 1.8 K/mcL (0.6-4.6); Lymphocytes % 10.6 %; Mean Corpuscular HGB Conc 26.7 g/dL (31.6-35.5); Mean Corpuscular Hemoglobin 17.3 pg (28.0-33.3); Mean Corpuscular Volume 64.8 fL (83.0-100.0); Mean Platelet Volume 9.4 fL (9.4-12.4); Monocytes # 1.5 K/mcL (0.0-1.3); Monocytes % 8.7 %; Neutrophils # 13.7 K/mcL (1.6-8.9); Nucleated Red Blood Cells 0.1 /100 WBC (0); Platelet Count 554 K/mcL (140-400); Red Cell Distribution Width 19.1 % (11.5-14.5); Segmented Neutrophils % 79.8 %; White Blood Count 17.2 K/mcL (4.3-11.1)
[2020-06-01 03:34] LABS: Alanine Aminotransferase 11 Units/L (7-52); Albumin 3.7 g/dL (3.5-5.7); Albumin/Globulin Ratio 1.1 (1.1-2.2); Alkaline Phosphatase 98 Units/L (34-104); Aspartate Amino Transferase 20 Units/L (13-39); BUN/Creatinine Ratio 22 (6-26); Blood Urea Nitrogen 14 mg/dL (8-23); Calcium 8.8 mg/dL (8.6-10.3); Carbon Dioxide 22 mEq/L (23-29); Chloride 104 mEq/L (98-107); Globulin 3.5 g/dL (2.4-3.5); Glucose 122 mg/dL (70-105); Osmolality,Calculated 290 (280-300); Potassium 3.3 mEq/L (3.5-5.1); Sodium 139 mEq/L (136-145); Total Protein 7.2 g/dL (6.4-8.9); eGFR For African Americans > 60 (> 60); eGFR For Non-African Americans > 60 (> 60)
[2020-06-01 04:09] LABS: Anisocytosis 1+ (Not Present); Hypochromasia Present (Not Present); Platelet Estimate Increased (Normal)
[2020-06-01] MEDS: *HR* Heparin 5,000 UNIT/ML VIAL SQ SCH ×3 (05:05→19:36)
[2020-06-01] MEDS: Aspirin 81 MG TAB.CHEW PO SCH (09:27)
[2020-06-01] MEDS: Acetaminophen 325 MG TABLET PO PRN (10:33)
[2020-06-01] MEDS: OLANZapine 5 MG TAB.RAPDIS PO PRN ×2 (10:34→23:16)
[2020-06-01] MEDS: Potassium Chloride Elixir 20 MEQ/15 ML UDC PO ONE ×2 (14:25→14:35)
[2020-06-01] MEDS ORDERED: Potassium Chloride 40 MEQ, Lidocaine 1% 2 ML in 0.9 % Sodium Chloride 500 ML IVPB ONE (18:52)
[2020-06-02] MEDS: *HR* Heparin 5,000 UNIT/ML VIAL SQ SCH ×3 (05:12→20:24)
[2020-06-02 06:23] LABS: Mean Platelet Volume 8.9 fL (9.4-12.4)
[2020-06-02 06:25] LABS: Hematocrit 30.3 % (37.5-50.1); Hemoglobin 8.1 g/dL (12.9-16.9); Mean Corpuscular HGB Conc 26.7 g/dL (31.6-35.5); Mean Corpuscular Hemoglobin 17.6 pg (28.0-33.3); Mean Corpuscular Volume 65.9 fL (83.0-100.0); Platelet Count 538 K/mcL (140-400); Red Cell Distribution Width 19.3 % (11.5-14.5); White Blood Count 12.5 K/mcL (4.3-11.1)
[2020-06-02 06:45] LABS: BUN/Creatinine Ratio 31 (6-26); Blood Urea Nitrogen 21 mg/dL (8-23); Calcium 8.9 mg/dL (8.6-10.3); Carbon Dioxide 23 mEq/L (23-29); Chloride 110 mEq/L (98-107); Glucose 101 mg/dL (70-105); Osmolality,Calculated 299 (280-300); Potassium 3.9 mEq/L (3.5-5.1); Sodium 143 mEq/L (136-145); eGFR For African Americans > 60 (> 60); eGFR For Non-African Americans > 60 (> 60)
[2020-06-02] MEDS: Aspirin 81 MG TAB.CHEW PO SCH (08:50)
[2020-06-02] MEDS: OLANZapine 5 MG TAB.RAPDIS PO PRN (08:56)
[2020-06-02] MEDS ORDERED: Valproic Acid INJ 250 MG in 0.9 % Sodium Chloride 100 ML IVPB ONE (11:47)
[2020-06-02] MEDS ORDERED: Water for inj. (sterile) 10 ML ONE (18:27)
[2020-06-02] MEDS: OLANZapine 10 MG VIAL IM PRN (18:31)
[2020-06-02] MEDS: Valproic Acid INJ 250 MG in 0.9 % Sodium Chloride 100 ML IVPB SCH (20:24)
[2020-06-03] MEDS: *HR* Heparin 5,000 UNIT/ML VIAL SQ SCH ×3 (05:04→21:38)
[2020-06-03] MEDS: Valproic Acid INJ 250 MG in 0.9 % Sodium Chloride 100 ML IVPB SCH ×3 (05:04→21:38)
[2020-06-03 06:47] LABS: Hematocrit 31.9 % (37.5-50.1); Hemoglobin 8.3 g/dL (12.9-16.9); Mean Corpuscular Hemoglobin 17.7 pg (28.0-33.3); Mean Corpuscular Volume 68.2 fL (83.0-100.0); Mean Platelet Volume 8.9 fL (9.4-12.4); Platelet Count 604 K/mcL (140-400); Red Blood Count 4.68 M/mcL (4.19-5.50); Red Cell Distribution Width 19.6 % (11.5-14.5); White Blood Count 12.9 K/mcL (4.3-11.1)
[2020-06-03 07:09] LABS: BUN/Creatinine Ratio 28 (6-26); Blood Urea Nitrogen 19 mg/dL (8-23); Calcium 9.3 mg/dL (8.6-10.3); Carbon Dioxide 24 mEq/L (23-29); Chloride 111 mEq/L (98-107); Glucose 112 mg/dL (70-105); Osmolality,Calculated 305 (280-300); Sodium 146 mEq/L (136-145); eGFR For African Americans > 60 (> 60); eGFR For Non-African Americans > 60 (> 60)
[2020-06-03] MEDS: Aspirin 81 MG TAB.CHEW PO SCH (08:08)
[2020-06-03] MEDS: OLANZapine 5 MG TAB.RAPDIS PO PRN (09:40)
[2020-06-03] MEDS: Ringers Solution, Lactated 1,000 ML IVC SCH ×2 (11:25→21:50)
[2020-06-03] MEDS ORDERED: *HR* LORazepam 2 MG/ML VIAL IVP ONE (13:01)
[2020-06-04] MEDS: OLANZapine 5 MG TAB.RAPDIS PO PRN (00:07)
[2020-06-04] MEDS: Valproic Acid INJ 250 MG in 0.9 % Sodium Chloride 100 ML IVPB SCH ×3 (05:30→21:45)
[2020-06-04] MEDS: *HR* Heparin 5,000 UNIT/ML VIAL SQ SCH ×3 (05:30→20:43)
[2020-06-04 05:41] LABS: Hematocrit 29.5 % (37.5-50.1); Hemoglobin 7.7 g/dL (12.9-16.9); Mean Corpuscular HGB Conc 26.1 g/dL (31.6-35.5); Mean Corpuscular Hemoglobin 17.7 pg (28.0-33.3); Mean Corpuscular Volume 67.8 fL (83.0-100.0); Mean Platelet Volume 9.3 fL (9.4-12.4); Platelet Count 527 K/mcL (140-400); Red Blood Count 4.35 M/mcL (4.19-5.50); Red Cell Distribution Width 19.6 % (11.5-14.5); White Blood Count 14.6 K/mcL (4.3-11.1)
[2020-06-04 05:51] LABS: BUN/Creatinine Ratio 26 (6-26); Blood Urea Nitrogen 15 mg/dL (8-23); Calcium 9.1 mg/dL (8.6-10.3); Carbon Dioxide 24 mEq/L (23-29); Chloride 113 mEq/L (98-107); Glucose 103 mg/dL (70-105); Osmolality,Calculated 305 (280-300); Potassium 3.9 mEq/L (3.5-5.1); Sodium 147 mEq/L (136-145); eGFR For African Americans > 60 (> 60); eGFR For Non-African Americans > 60 (> 60)
[2020-06-04] MEDS: Ringers Solution, Lactated 1,000 ML IVC SCH ×2 (08:14→18:39)
[2020-06-04] MEDS: Aspirin 81 MG TAB.CHEW PO SCH (08:14)
[2020-06-04 12:27] LABS: Lymphocytes # 2.3 K/mcL (0.6-4.6); Monocytes # 1.2 K/mcL (0.0-1.3); Neutrophils # 11.1 K/mcL (1.6-8.9)
[2020-06-04 12:32] LABS: Anisocytosis 1+ (Not Present); Hypochromasia Present (Not Present); Microcytosis Present (Not Present); Ovalocytes 1+ (Not Present)
[2020-06-04 12:33] LABS: Acanthocytes 1+ (Not Present); Platelet Estimate Increased (Normal); Polychromasia 1+ (Not Present); Schistocytes 1+ (Not Present)
[2020-06-04] MEDS ORDERED: Water for inj. (sterile) 10 ML ONE (17:23)
[2020-06-04] MEDS: OLANZapine 10 MG VIAL IM PRN (17:39)
[2020-06-04] MEDS: D5% in 0.45% NACL 1,000 ML IVC SCH (18:36)
[2020-06-04] MEDS ORDERED: OLANZapine 10 MG VIAL IM ONE (21:35)
[2020-06-05] MEDS: Valproic Acid INJ 250 MG in 0.9 % Sodium Chloride 100 ML IVPB SCH ×3 (04:46→21:00)
[2020-06-05] MEDS: *HR* Heparin 5,000 UNIT/ML VIAL SQ SCH ×3 (04:50→21:00)
[2020-06-05] MEDS: D5% in 0.45% NACL 1,000 ML IVC SCH ×2 (08:57→23:52)
[2020-06-05] MEDS: Aspirin 81 MG TAB.CHEW PO SCH (08:57)
[2020-06-06] MEDS: Acetaminophen 325 MG TABLET PO PRN (02:28)
[2020-06-06] MEDS: *HR* Heparin 5,000 UNIT/ML VIAL SQ SCH ×3 (04:48→21:34)
[2020-06-06] MEDS: Valproic Acid INJ 250 MG in 0.9 % Sodium Chloride 100 ML IVPB SCH ×3 (04:49→21:38)
[2020-06-06 06:16] LABS: Immature Granulocytes % 0.3 % (0-4)
[2020-06-06 06:17] LABS: Basophils % 0.1 %; Eosinophils # 0.3 K/mcL (0.0-0.6); Eosinophils % 2.6 %; Hematocrit 23.2 % (37.5-50.1); Hemoglobin 6.1 g/dL (12.9-16.9); Lymphocytes # 1.7 K/mcL (0.6-4.6); Lymphocytes % 15.8 %; Mean Corpuscular HGB Conc 26.3 g/dL (31.6-35.5); Mean Corpuscular Hemoglobin 17.7 pg (28.0-33.3); Mean Corpuscular Volume 67.2 fL (83.0-100.0); Mean Platelet Volume 9.1 fL (9.4-12.4); Monocytes # 0.9 K/mcL (0.0-1.3); Monocytes % 8.4 %; Platelet Count 414 K/mcL (140-400); Red Blood Count 3.45 M/mcL (4.19-5.50); Red Cell Distribution Width 19.3 % (11.5-14.5); Segmented Neutrophils % 72.8 %
[2020-06-06] MEDS ORDERED: 0.9 % Sodium Chloride 250 ML IVC SCH (08:15)
[2020-06-06] MEDS: Aspirin 81 MG TAB.CHEW PO SCH (09:22)
[2020-06-06 10:59] LABS: Hematocrit 23.1 % (37.5-50.1)
[2020-06-06] MEDS ORDERED: 0.9 % Sodium Chloride 250 ML ONE (11:38)
[2020-06-06 19:50] LABS: Eosinophils % 2.5 %; Segmented Neutrophils % 74.4 %
[2020-06-06 19:52] LABS: Basophils % 0.2 %; Eosinophils # 0.3 K/mcL (0.0-0.6); Hematocrit 28.8 % (37.5-50.1); Immature Granulocytes % 0.3 % (0-4); Lymphocytes # 1.5 K/mcL (0.6-4.6); Lymphocytes % 14.3 %; Mean Corpuscular HGB Conc 27.8 g/dL (31.6-35.5); Mean Corpuscular Volume 71.8 fL (83.0-100.0); Mean Platelet Volume 9.4 fL (9.4-12.4); Monocytes # 0.9 K/mcL (0.0-1.3); Monocytes % 8.3 %; Platelet Count 403 K/mcL (140-400); Red Blood Count 4.01 M/mcL (4.19-5.50); Red Cell Distribution Width 22.2 % (11.5-14.5); White Blood Count 10.7 K/mcL (4.3-11.1)
[2020-06-06 20:47] LABS: Anisocytosis 1+ (Not Present); Hypochromasia Present (Not Present); Platelet Estimate Normal (Normal)
[2020-06-06] MEDS: D5% in 0.45% NACL 1,000 ML IVC SCH (22:18)
[2020-06-07] MEDS: Valproic Acid INJ 250 MG in 0.9 % Sodium Chloride 100 ML IVPB SCH ×3 (05:09→22:01)
[2020-06-07] MEDS: *HR* Heparin 5,000 UNIT/ML VIAL SQ SCH ×3 (05:12→22:15)
[2020-06-07 05:30] LABS: Immature Granulocytes % 0.3 % (0-4); Red Cell Distribution Width 22.3 % (11.5-14.5)
[2020-06-07 05:31] LABS: Basophils % 0.2 %; Eosinophils # 0.3 K/mcL (0.0-0.6); Eosinophils % 2.9 %; Hematocrit 30.6 % (37.5-50.1); Hemoglobin 8.6 g/dL (12.9-16.9); Lymphocytes # 1.9 K/mcL (0.6-4.6); Mean Corpuscular HGB Conc 28.1 g/dL (31.6-35.5); Mean Corpuscular Hemoglobin 19.9 pg (28.0-33.3); Mean Corpuscular Volume 70.7 fL (83.0-100.0); Mean Platelet Volume 9.3 fL (9.4-12.4); Monocytes # 0.9 K/mcL (0.0-1.3); Platelet Count 449 K/mcL (140-400); Red Blood Count 4.33 M/mcL (4.19-5.50); Segmented Neutrophils % 71.6 %; White Blood Count 11.2 K/mcL (4.3-11.1)
[2020-06-07 05:35] LABS: Anisocytosis 1+ (Not Present)
[2020-06-07 05:36] LABS: Hypochromasia Present (Not Present); Platelet Estimate Increased (Normal)
[2020-06-07 05:51] LABS: BUN/Creatinine Ratio 26 (6-26); Blood Urea Nitrogen 12 mg/dL (8-23); Calcium 8.2 mg/dL (8.6-10.3); Carbon Dioxide 24 mEq/L (23-29); Chloride 113 mEq/L (98-107); Glucose 93 mg/dL (70-105); Osmolality,Calculated 297 (280-300); Potassium 3.3 mEq/L (3.5-5.1); Sodium 144 mEq/L (136-145); eGFR For African Americans > 60 (> 60); eGFR For Non-African Americans > 60 (> 60)
[2020-06-07] MEDS ORDERED: *HR* Propofol 200 MG/20 ML VIAL IVP ONE (08:41)
[2020-06-07] MEDS ORDERED: Lidocaine -MPF 2% 2 ML VIAL ONE (08:41)
[2020-06-07 09:05] LABS: Magnesium 2.1 mg/dL (1.6-2.6)
[2020-06-07 10:27] LABS: Adenovirus Not Detected (Not Detect); Bordetella Pertussis Not Detected (Not Detect); Chlamydophila pneumoniae Not Detected (Not Detect); Coronavirus 229E Not Detected (Not Detect); Coronavirus HKU1 Not Detected (Not Detect); Coronavirus NL63 Not Detected (Not Detect); Coronavirus OC43 Not Detected (Not Detect); Human Metapneumovirus Not Detected (Not Detect); Human Rhinovirus/Enterovirus Not Detected (Not Detect); Influenza A Subtype 2009 H1 Not Detected (Not Detect); Influenza B Not Detected (Not Detect); Mycoplasma pneumoniae Not Detected (Not Detect); Parainfluenza Virus 1 Not Detected (Not Detect); Parainfluenza Virus 2 Not Detected (Not Detect); Parainfluenza Virus 3 Not Detected (Not Detect); Parainfluenza Virus 4 Not Detected (Not Detect); Respiratory Syncytial Virus Not Detected (Not Detect); SARS-CoV-2 Not Detected (Not Detect)
[2020-06-07] MEDS ORDERED: Perflutren Lipid Microsphere 1.3 ML in 0.9 % Sodium Chloride 8.7 ML IVP PRN (12:56)
[2020-06-07] MEDS: Aspirin 81 MG TAB.CHEW PO SCH (13:02)
[2020-06-07] MEDS: Metoprolol XL (24 HR) Succ 25 MG TAB.ER.24H PO SCH (14:50)
[2020-06-08] MEDS: Valproic Acid INJ 250 MG in 0.9 % Sodium Chloride 100 ML IVPB SCH ×3 (06:02→20:24)
[2020-06-08] MEDS: *HR* Heparin 5,000 UNIT/ML VIAL SQ SCH ×3 (06:03→20:25)
[2020-06-08] MEDS: Aspirin 81 MG TAB.CHEW PO SCH (09:51)
[2020-06-08] MEDS: Metoprolol XL (24 HR) Succ 25 MG TAB.ER.24H PO SCH (09:51)
[2020-06-08 20:39] LABS: Basophils % 0.3 %; Red Cell Distribution Width 23.3 % (11.5-14.5)
[2020-06-08 20:41] LABS: Eosinophils # 0.3 K/mcL (0.0-0.6); Eosinophils % 2.4 %; Hematocrit 29.8 % (37.5-50.1); Hemoglobin 8.4 g/dL (12.9-16.9); Immature Granulocytes % 0.3 % (0-4); Lymphocytes % 18.3 %; Mean Corpuscular HGB Conc 28.2 g/dL (31.6-35.5); Mean Corpuscular Hemoglobin 20.2 pg (28.0-33.3); Mean Corpuscular Volume 71.6 fL (83.0-100.0); Mean Platelet Volume 9.1 fL (9.4-12.4); Monocytes # 0.9 K/mcL (0.0-1.3); Monocytes % 8.1 %; Neutrophils # 7.7 K/mcL (1.6-8.9); Platelet Count 486 K/mcL (140-400); Red Blood Count 4.16 M/mcL (4.19-5.50); Segmented Neutrophils % 70.6 %; White Blood Count 10.9 K/mcL (4.3-11.1)
[2020-06-08 20:56] LABS: BUN/Creatinine Ratio 23 (6-26); Blood Urea Nitrogen 15 mg/dL (8-23); Calcium 8.1 mg/dL (8.6-10.3); Carbon Dioxide 23 mEq/L (23-29); Chloride 108 mEq/L (98-107); Glucose 142 mg/dL (70-105); Osmolality,Calculated 291 (280-300); Potassium 3.7 mEq/L (3.5-5.1); Sodium 139 mEq/L (136-145); eGFR For African Americans > 60 (> 60); eGFR For Non-African Americans > 60 (> 60)
[2020-06-08 21:11] LABS: Anisocytosis 1+ (Not Present); Hypochromasia Present (Not Present)
[2020-06-09 02:42] LABS: Basophils % 0.4 %; Eosinophils # 0.4 K/mcL (0.0-0.6); Eosinophils % 3.3 %; Hematocrit 29.7 % (37.5-50.1); Hemoglobin 8.4 g/dL (12.9-16.9); Immature Granulocytes % 0.3 % (0-4); Lymphocytes % 18.8 %; Mean Corpuscular HGB Conc 28.3 g/dL (31.6-35.5); Mean Corpuscular Hemoglobin 20.3 pg (28.0-33.3); Mean Corpuscular Volume 71.7 fL (83.0-100.0); Mean Platelet Volume 9.9 fL (9.4-12.4); Monocytes % 8.9 %; Neutrophils # 7.4 K/mcL (1.6-8.9); Platelet Count 509 K/mcL (140-400); Red Blood Count 4.14 M/mcL (4.19-5.50); Red Cell Distribution Width 23.8 % (11.5-14.5); Segmented Neutrophils % 68.3 %; White Blood Count 10.8 K/mcL (4.3-11.1)
[2020-06-09 03:04] LABS: BUN/Creatinine Ratio 27 (6-26); Blood Urea Nitrogen 15 mg/dL (8-23); Carbon Dioxide 24 mEq/L (23-29); Chloride 107 mEq/L (98-107); Glucose 137 mg/dL (70-105); Osmolality,Calculated 293 (280-300); Potassium 3.6 mEq/L (3.5-5.1); Sodium 140 mEq/L (136-145); eGFR For African Americans > 60 (> 60); eGFR For Non-African Americans > 60 (> 60)
[2020-06-09 03:49] LABS: Anisocytosis 1+ (Not Present); Hypochromasia Present (Not Present)
[2020-06-09 03:50] LABS: Poikilocytosis 2+ (Not Present)
[2020-06-09] MEDS: *HR* Heparin 5,000 UNIT/ML VIAL SQ SCH ×3 (05:33→20:28)
[2020-06-09] MEDS: Valproic Acid INJ 250 MG in 0.9 % Sodium Chloride 100 ML IVPB SCH ×3 (05:34→20:29)
[2020-06-09] MEDS: Aspirin 81 MG TAB.CHEW PO SCH (08:24)
[2020-06-09] MEDS: Metoprolol XL (24 HR) Succ 25 MG TAB.ER.24H PO SCH (08:25)
[2020-06-10] MEDS: Valproic Acid INJ 250 MG in 0.9 % Sodium Chloride 100 ML IVPB SCH ×3 (05:12→22:47)
[2020-06-10] MEDS: *HR* Heparin 5,000 UNIT/ML VIAL SQ SCH ×3 (05:13→22:06)
[2020-06-10 06:54] LABS: Immature Granulocytes % 0.5 % (0-4); Mean Platelet Volume 9.4 fL (9.4-12.4); White Blood Count 10.4 K/mcL (4.3-11.1)
[2020-06-10 06:56] LABS: Basophils % 0.3 %; Eosinophils # 0.4 K/mcL (0.0-0.6); Eosinophils % 3.9 %; Hemoglobin 8.3 g/dL (12.9-16.9); Lymphocytes # 2.5 K/mcL (0.6-4.6); Lymphocytes % 24.2 %; Mean Corpuscular HGB Conc 27.7 g/dL (31.6-35.5); Mean Corpuscular Volume 72.1 fL (83.0-100.0); Monocytes # 1.1 K/mcL (0.0-1.3); Monocytes % 10.5 %; Neutrophils # 6.3 K/mcL (1.6-8.9); Platelet Count 553 K/mcL (140-400); Red Blood Count 4.16 M/mcL (4.19-5.50); Red Cell Distribution Width 24.1 % (11.5-14.5); Segmented Neutrophils % 60.6 %
[2020-06-10 07:20] LABS: Anisocytosis 1+ (Not Present); Hypochromasia Present (Not Present); Poikilocytosis 2+ (Not Present)
[2020-06-10 07:24] LABS: BUN/Creatinine Ratio 31 (6-26); Blood Urea Nitrogen 12 mg/dL (8-23); Calcium 8.2 mg/dL (8.6-10.3); Carbon Dioxide 25 mEq/L (23-29); Chloride 106 mEq/L (98-107); Glucose 100 mg/dL (70-105); Osmolality,Calculated 286 (280-300); Potassium 3.8 mEq/L (3.5-5.1); Sodium 138 mEq/L (136-145); eGFR For African Americans > 60 (> 60); eGFR For Non-African Americans > 60 (> 60)
[2020-06-10] MEDS: Aspirin 81 MG TAB.CHEW PO SCH (08:27)
[2020-06-10] MEDS: Metoprolol XL (24 HR) Succ 25 MG TAB.ER.24H PO SCH ×2 (09:48→09:52)
[2020-06-10] MEDS: Acetaminophen 325 MG TABLET PO PRN (09:48)
[2020-06-11] MEDS: Valproic Acid INJ 250 MG in 0.9 % Sodium Chloride 100 ML IVPB SCH ×3 (06:48→21:13)
[2020-06-11] MEDS: *HR* Heparin 5,000 UNIT/ML VIAL SQ SCH ×3 (06:49→21:05)
[2020-06-11] MEDS: Aspirin 81 MG TAB.CHEW PO SCH (08:56)
[2020-06-11] MEDS: Metoprolol XL (24 HR) Succ 25 MG TAB.ER.24H PO SCH (08:56)
[2020-06-11 09:07] LABS: Red Cell Distribution Width 25.2 % (11.5-14.5)
[2020-06-11 09:09] LABS: Eosinophils # 0.5 K/mcL (0.0-0.6); Hematocrit 34.8 % (37.5-50.1); Hemoglobin 9.7 g/dL (12.9-16.9); Mean Corpuscular HGB Conc 27.9 g/dL (31.6-35.5); Mean Corpuscular Hemoglobin 20.3 pg (28.0-33.3); Mean Corpuscular Volume 72.7 fL (83.0-100.0); Mean Platelet Volume 9.2 fL (9.4-12.4); Platelet Count 600 K/mcL (140-400); Red Blood Count 4.79 M/mcL (4.19-5.50); White Blood Count 11.7 K/mcL (4.3-11.1)
[2020-06-11 09:26] LABS: BUN/Creatinine Ratio 24 (6-26); Blood Urea Nitrogen 10 mg/dL (8-23); Calcium 8.5 mg/dL (8.6-10.3); Carbon Dioxide 25 mEq/L (23-29); Chloride 103 mEq/L (98-107); Glucose 91 mg/dL (70-105); Osmolality,Calculated 281 (280-300); Sodium 136 mEq/L (136-145); eGFR For African Americans > 60 (> 60); eGFR For Non-African Americans > 60 (> 60)
[2020-06-11 10:52] LABS: Anisocytosis 3+ (Not Present); Hypochromasia Present (Not Present); Lymphocytes # 3.7 K/mcL (0.6-4.6); Monocytes # 1.6 K/mcL (0.0-1.3); Neutrophils # 5.9 K/mcL (1.6-8.9); Platelet Estimate Marked Increase (Normal); Reactive Lymphocytes Present (Not Present)
[2020-06-11 10:54] LABS: Polychromasia 1+ (Not Present)
[2020-06-11 10:55] LABS: Schistocytes 1+ (Not Present)
[2020-06-11] MEDS ORDERED: OLANZapine 10 MG VIAL IM PRN (15:42)
[2020-06-12 05:16] LABS: Hemoglobin 8.7 g/dL (12.9-16.9)
[2020-06-12 05:18] LABS: Basophils # 0.1 K/mcL (0.0-0.2); Basophils % 0.4 %; Eosinophils # 0.3 K/mcL (0.0-0.6); Eosinophils % 2.6 %; Hematocrit 30.6 % (37.5-50.1); Immature Granulocytes % 0.6 % (0-4); Lymphocytes # 2.2 K/mcL (0.6-4.6); Lymphocytes % 17.2 %; Mean Corpuscular HGB Conc 28.4 g/dL (31.6-35.5); Mean Corpuscular Hemoglobin 20.3 pg (28.0-33.3); Mean Corpuscular Volume 71.5 fL (83.0-100.0); Mean Platelet Volume 9.7 fL (9.4-12.4); Monocytes # 1.7 K/mcL (0.0-1.3); Monocytes % 13.6 %; Neutrophils # 8.4 K/mcL (1.6-8.9); Platelet Count 575 K/mcL (140-400); Red Blood Count 4.28 M/mcL (4.19-5.50); Red Cell Distribution Width 25.3 % (11.5-14.5); Segmented Neutrophils % 65.6 %; White Blood Count 12.8 K/mcL (4.3-11.1)
[2020-06-12] MEDS: Valproic Acid INJ 250 MG in 0.9 % Sodium Chloride 100 ML IVPB SCH ×2 (05:26→13:47)
[2020-06-12] MEDS: *HR* Heparin 5,000 UNIT/ML VIAL SQ SCH ×3 (05:28→20:03)
[2020-06-12 05:35] LABS: Alanine Aminotransferase 9 Units/L (7-52); Albumin 2.8 g/dL (3.5-5.7); Alkaline Phosphatase 96 Units/L (34-104); Aspartate Amino Transferase 13 Units/L (13-39); BUN/Creatinine Ratio 31 (6-26); Bilirubin,Total 0.6 mg/dL (0.3-1.0); Blood Urea Nitrogen 12 mg/dL (8-23); Calcium 8.2 mg/dL (8.6-10.3); Carbon Dioxide 25 mEq/L (23-29); Chloride 103 mEq/L (98-107); Globulin 2.8 g/dL (2.4-3.5); Glucose 110 mg/dL (70-105); Osmolality,Calculated 282 (280-300); Sodium 136 mEq/L (136-145); Total Protein 5.6 g/dL (6.4-8.9); eGFR For African Americans > 60 (> 60); eGFR For Non-African Americans > 60 (> 60)
[2020-06-12 05:46] LABS: Anisocytosis 2+ (Not Present); Poikilocytosis 2+ (Not Present); Schistocytes 1+ (Not Present)
[2020-06-12 05:48] LABS: Hypochromasia Present (Not Present)
[2020-06-12] MEDS ORDERED: 0.9 % Sodium Chloride 1,000 ML IV ONE (09:27)
[2020-06-12 09:48] LABS: Hematocrit 29.8 % (37.5-50.1); Hemoglobin 8.3 g/dL (12.9-16.9)
[2020-06-12] MEDS: Metoprolol XL (24 HR) Succ 25 MG TAB.ER.24H PO SCH (10:00)
[2020-06-12 10:32] LABS: Uric Acid 2.9 mg/dL (2.3-7.6)
[2020-06-12] MEDS: Aspirin 81 MG TAB.CHEW PO SCH (11:25)
[2020-06-12] MEDS: Acetaminophen 325 MG TABLET PO PRN (15:45)
[2020-06-12 18:05] LABS: Hemoglobin 8.2 g/dL (12.9-16.9)
[2020-06-12 21:43] LABS: Hematocrit 28.8 % (37.5-50.1); Hemoglobin 8.1 g/dL (12.9-16.9)
[2020-06-13] MEDS: *HR* Heparin 5,000 UNIT/ML VIAL SQ SCH ×3 (05:45→19:54)
[2020-06-13] MEDS: Aspirin 81 MG TAB.CHEW PO SCH (08:22)
[2020-06-13] MEDS: Metoprolol XL (24 HR) Succ 25 MG TAB.ER.24H PO SCH (08:22)
[2020-06-13 10:05] LABS: Basophils % 0.3 %; Hemoglobin 8.3 g/dL (12.9-16.9); Red Cell Distribution Width 25.6 % (11.5-14.5)
[2020-06-13 10:07] LABS: Eosinophils # 0.1 K/mcL (0.0-0.6); Hematocrit 29.6 % (37.5-50.1); Immature Granulocytes % 0.6 % (0-4); Lymphocytes # 1.7 K/mcL (0.6-4.6); Lymphocytes % 15.9 %; Mean Corpuscular Hemoglobin 20.5 pg (28.0-33.3); Mean Corpuscular Volume 73.1 fL (83.0-100.0); Mean Platelet Volume 9.1 fL (9.4-12.4); Monocytes # 1.8 K/mcL (0.0-1.3); Monocytes % 17.3 %; Neutrophils # 6.8 K/mcL (1.6-8.9); Platelet Count 528 K/mcL (140-400); Red Blood Count 4.05 M/mcL (4.19-5.50); Segmented Neutrophils % 64.9 %; White Blood Count 10.4 K/mcL (4.3-11.1)
[2020-06-13 10:21] LABS: Hypochromasia Present (Not Present)
[2020-06-13 10:22] LABS: Ovalocytes 1+ (Not Present)
[2020-06-13 10:23] LABS: Poikilocytosis 2+ (Not Present); Schistocytes 1+ (Not Present); Tear Drop Cells 1+ (Not Present)
[2020-06-13 10:24] LABS: Anisocytosis 2+ (Not Present)
[2020-06-13 10:26] LABS: BUN/Creatinine Ratio 21 (6-26); Blood Urea Nitrogen 10 mg/dL (8-23); Calcium 8.5 mg/dL (8.6-10.3); Carbon Dioxide 27 mEq/L (23-29); Chloride 104 mEq/L (98-107); Glucose 117 mg/dL (70-105); Osmolality,Calculated 284 (280-300); Potassium 3.8 mEq/L (3.5-5.1); Sodium 137 mEq/L (136-145); eGFR For African Americans > 60 (> 60); eGFR For Non-African Americans > 60 (> 60)
[2020-06-13] MEDS ORDERED: Methyl Salicylate/Menthol 57 APPL/57 GM TUBE TP PRN (13:28)
[2020-06-13] MEDS: predniSONE 20 MG TABLET PO SCH (16:09)
[2020-06-14 03:22] LABS: Hematocrit 31.7 % (37.5-50.1)
[2020-06-14 03:23] LABS: Basophils % 0.2 %; Hemoglobin 8.9 g/dL (12.9-16.9); Immature Granulocytes % 0.7 % (0-4); Lymphocytes # 1.1 K/mcL (0.6-4.6); Mean Corpuscular HGB Conc 28.1 g/dL (31.6-35.5); Mean Corpuscular Hemoglobin 20.6 pg (28.0-33.3); Mean Corpuscular Volume 73.5 fL (83.0-100.0); Mean Platelet Volume 9.9 fL (9.4-12.4); Monocytes # 0.4 K/mcL (0.0-1.3); Monocytes % 3.4 %; Neutrophils # 9.5 K/mcL (1.6-8.9); Platelet Count 627 K/mcL (140-400); Red Blood Count 4.31 M/mcL (4.19-5.50); Segmented Neutrophils % 85.7 %; White Blood Count 11.1 K/mcL (4.3-11.1)
[2020-06-14 03:34] LABS: BUN/Creatinine Ratio 31 (6-26); Blood Urea Nitrogen 14 mg/dL (8-23); Calcium 8.7 mg/dL (8.6-10.3); Carbon Dioxide 25 mEq/L (23-29); Chloride 104 mEq/L (98-107); Glucose 161 mg/dL (70-105); Osmolality,Calculated 286 (280-300); Potassium 4.3 mEq/L (3.5-5.1); Sodium 136 mEq/L (136-145); eGFR For African Americans > 60 (> 60); eGFR For Non-African Americans > 60 (> 60)
[2020-06-14 03:47] LABS: Anisocytosis 1+ (Not Present); Platelet Estimate Increased (Normal); Poikilocytosis 1+ (Not Present)
[2020-06-14 03:48] LABS: Hypochromasia Present (Not Present)
[2020-06-14] MEDS: *HR* Heparin 5,000 UNIT/ML VIAL SQ SCH ×3 (05:07→21:16)
[2020-06-14] MEDS: Metoprolol XL (24 HR) Succ 25 MG TAB.ER.24H PO SCH (08:06)
[2020-06-14] MEDS: predniSONE 20 MG TABLET PO SCH (08:06)
[2020-06-14] MEDS: Aspirin 81 MG TAB.CHEW PO SCH (08:07)
[2020-06-15 04:13] LABS: Red Cell Distribution Width 26.6 % (11.5-14.5)
[2020-06-15 04:15] LABS: Basophils % 0.2 %; Hematocrit 31.8 % (37.5-50.1); Hemoglobin 8.7 g/dL (12.9-16.9); Immature Granulocytes % 0.7 % (0-4); Lymphocytes # 1.7 K/mcL (0.6-4.6); Lymphocytes % 15.6 %; Mean Corpuscular HGB Conc 27.4 g/dL (31.6-35.5); Mean Corpuscular Hemoglobin 19.8 pg (28.0-33.3); Mean Corpuscular Volume 72.3 fL (83.0-100.0); Monocytes # 0.9 K/mcL (0.0-1.3); Monocytes % 8.4 %; Neutrophils # 8.3 K/mcL (1.6-8.9); Platelet Count 716 K/mcL (140-400); Segmented Neutrophils % 75.1 %; White Blood Count 11.1 K/mcL (4.3-11.1)
[2020-06-15 04:36] LABS: BUN/Creatinine Ratio 49 (6-26); Blood Urea Nitrogen 24 mg/dL (8-23); Calcium 8.8 mg/dL (8.6-10.3); Carbon Dioxide 26 mEq/L (23-29); Chloride 104 mEq/L (98-107); Glucose 146 mg/dL (70-105); Osmolality,Calculated 293 (280-300); Potassium 4.4 mEq/L (3.5-5.1); Sodium 138 mEq/L (136-145); eGFR For African Americans > 60 (> 60); eGFR For Non-African Americans > 60 (> 60)
[2020-06-15 04:39] LABS: Hypochromasia Present (Not Present); Platelet Estimate Increased (Normal); Poikilocytosis 1+ (Not Present)
[2020-06-15] MEDS: *HR* Heparin 5,000 UNIT/ML VIAL SQ SCH ×3 (05:32→19:19)
[2020-06-15] MEDS: Aspirin 81 MG TAB.CHEW PO SCH (09:09)
[2020-06-15] MEDS: predniSONE 20 MG TABLET PO SCH (09:10)
[2020-06-15] MEDS: Metoprolol XL (24 HR) Succ 25 MG TAB.ER.24H PO SCH (09:10)
[2020-06-16] MEDS: *HR* Heparin 5,000 UNIT/ML VIAL SQ SCH ×3 (05:54→20:03)
[2020-06-16] MEDS: predniSONE 20 MG TABLET PO SCH (08:34)
[2020-06-16] MEDS: Metoprolol XL (24 HR) Succ 25 MG TAB.ER.24H PO SCH (08:35)
[2020-06-16] MEDS: Aspirin 81 MG TAB.CHEW PO SCH (08:35)
[2020-06-16] MEDS: Ondansetron ODT 4 MG TAB.RAPDIS SL PRN (21:07)
[2020-06-17 05:35] LABS: Hemoglobin 8.2 g/dL (12.9-16.9)
[2020-06-17 05:36] LABS: Hematocrit 28.9 % (37.5-50.1); Mean Corpuscular HGB Conc 28.4 g/dL (31.6-35.5); Mean Corpuscular Volume 74.1 fL (83.0-100.0); Mean Platelet Volume 9.5 fL (9.4-12.4); Platelet Count 614 K/mcL (140-400); Red Cell Distribution Width 26.3 % (11.5-14.5)
[2020-06-17] MEDS: *HR* Heparin 5,000 UNIT/ML VIAL SQ SCH (05:51)
[2020-06-17 05:53] LABS: BUN/Creatinine Ratio 45 (6-26); Blood Urea Nitrogen 25 mg/dL (8-23); Calcium 8.5 mg/dL (8.6-10.3); Carbon Dioxide 28 mEq/L (23-29); Chloride 99 mEq/L (98-107); Glucose 106 mg/dL (70-105); Osmolality,Calculated 281 (280-300); Potassium 4.6 mEq/L (3.5-5.1); Sodium 133 mEq/L (136-145); eGFR For African Americans > 60 (> 60); eGFR For Non-African Americans > 60 (> 60)
[2020-06-17] MEDS: predniSONE 20 MG TABLET PO SCH (07:48)
[2020-06-17] MEDS: Aspirin 81 MG TAB.CHEW PO SCH (07:48)
[2020-06-17] MEDS: Metoprolol XL (24 HR) Succ 25 MG TAB.ER.24H PO SCH (07:48)
[2020-06-18 06:29] LABS: Mean Platelet Volume 9.6 fL (9.4-12.4)
[2020-06-18 06:30] LABS: Hemoglobin 8.5 g/dL (12.9-16.9); Mean Corpuscular HGB Conc 27.4 g/dL (31.6-35.5); Mean Corpuscular Hemoglobin 20.1 pg (28.0-33.3); Mean Corpuscular Volume 73.5 fL (83.0-100.0); Platelet Count 677 K/mcL (140-400); Red Blood Count 4.22 M/mcL (4.19-5.50); Red Cell Distribution Width 26.4 % (11.5-14.5); White Blood Count 17.7 K/mcL (4.3-11.1)
[2020-06-18 06:55] LABS: BUN/Creatinine Ratio 51 (6-26); Blood Urea Nitrogen 28 mg/dL (8-23); Calcium 8.6 mg/dL (8.6-10.3); Carbon Dioxide 28 mEq/L (23-29); Chloride 98 mEq/L (98-107); Glucose 157 mg/dL (70-105); Osmolality,Calculated 285 (280-300); Potassium 4.3 mEq/L (3.5-5.1); Sodium 133 mEq/L (136-145); eGFR For African Americans > 60 (> 60); eGFR For Non-African Americans > 60 (> 60)
[2020-06-18] MEDS: Metoprolol XL (24 HR) Succ 25 MG TAB.ER.24H PO SCH (08:44)
[2020-06-18] MEDS: Aspirin 81 MG TAB.CHEW PO SCH (08:44)
[2020-06-19 02:57] LABS: Hematocrit 34.3 % (37.5-50.1); Hemoglobin 9.5 g/dL (12.9-16.9); Mean Corpuscular HGB Conc 27.7 g/dL (31.6-35.5); Mean Corpuscular Hemoglobin 20.4 pg (28.0-33.3); Mean Corpuscular Volume 73.6 fL (83.0-100.0); Mean Platelet Volume 9.1 fL (9.4-12.4); Platelet Count 706 K/mcL (140-400); Red Blood Count 4.66 M/mcL (4.19-5.50); Red Cell Distribution Width 26.8 % (11.5-14.5); White Blood Count 12.3 K/mcL (4.3-11.1)
[2020-06-19 03:17] LABS: BUN/Creatinine Ratio 43 (6-26); Blood Urea Nitrogen 26 mg/dL (8-23); Calcium 8.7 mg/dL (8.6-10.3); Carbon Dioxide 30 mEq/L (23-29); Chloride 99 mEq/L (98-107); Glucose 103 mg/dL (70-105); Osmolality,Calculated 283 (280-300); Potassium 4.6 mEq/L (3.5-5.1); Sodium 134 mEq/L (136-145); eGFR For African Americans > 60 (> 60); eGFR For Non-African Americans > 60 (> 60)
[2020-06-19] MEDS: Metoprolol XL (24 HR) Succ 25 MG TAB.ER.24H PO SCH (09:28)
[2020-06-19] MEDS: Aspirin 81 MG TAB.CHEW PO SCH (09:28)
[2020-06-19] MEDS: Haloperidol Lactate 5 MG/ML VIAL IM PRN (20:42)
[2020-06-19] MEDS: Ondansetron ODT 4 MG TAB.RAPDIS SL PRN (23:43)
[2020-06-20] MEDS: Haloperidol Lactate 5 MG/ML VIAL IM PRN (04:27)
[2020-06-20 08:07] LABS: Hematocrit 32.4 % (37.5-50.1); Mean Corpuscular HGB Conc 27.8 g/dL (31.6-35.5); Mean Corpuscular Hemoglobin 20.8 pg (28.0-33.3); Mean Platelet Volume 9.7 fL (9.4-12.4); Platelet Count 708 K/mcL (140-400); Red Blood Count 4.32 M/mcL (4.19-5.50); Red Cell Distribution Width 27.1 % (11.5-14.5); White Blood Count 15.6 K/mcL (4.3-11.1)
[2020-06-20 08:32] LABS: BUN/Creatinine Ratio 49 (6-26); Blood Urea Nitrogen 30 mg/dL (8-23); Calcium 8.7 mg/dL (8.6-10.3); Carbon Dioxide 31 mEq/L (23-29); Chloride 100 mEq/L (98-107); Glucose 116 mg/dL (70-105); Osmolality,Calculated 291 (280-300); Potassium 4.5 mEq/L (3.5-5.1); Sodium 137 mEq/L (136-145); eGFR For African Americans > 60 (> 60); eGFR For Non-African Americans > 60 (> 60)
[2020-06-20] MEDS: Metoprolol XL (24 HR) Succ 25 MG TAB.ER.24H PO SCH (11:08)
[2020-06-20] MEDS: Aspirin 81 MG TAB.CHEW PO SCH (11:08)
[2020-06-20] MEDS: Acetaminophen 325 MG TABLET PO PRN (19:41)
[2020-06-21] MEDS: Acetaminophen 325 MG TABLET PO PRN (07:55)
[2020-06-21] MEDS: Aspirin 81 MG TAB.CHEW PO SCH (07:55)
[2020-06-21] MEDS: Metoprolol XL (24 HR) Succ 25 MG TAB.ER.24H PO SCH (07:55)
[2020-06-22] MEDS: Aspirin 81 MG TAB.CHEW PO SCH (08:21)
[2020-06-22] MEDS: Metoprolol XL (24 HR) Succ 25 MG TAB.ER.24H PO SCH (08:21)
[2020-06-23] MEDS ORDERED: Haloperidol Lactate 5 MG/ML VIAL IVP PRN (09:46)
[2020-06-23] MEDS: Aspirin 81 MG TAB.CHEW PO SCH (10:49)
[2020-06-23] MEDS: Metoprolol XL (24 HR) Succ 25 MG TAB.ER.24H PO SCH (10:49)
[2020-06-23] MEDS: Acetaminophen 325 MG TABLET PO PRN (19:54)
[2020-06-24] MEDS: Aspirin 81 MG TAB.CHEW PO SCH (09:32)
[2020-06-24] MEDS: Metoprolol XL (24 HR) Succ 25 MG TAB.ER.24H PO SCH (09:32)
[2020-06-24] MEDS ORDERED: *HR* FentaNYL (PF) 100 MCG/2 ML VIAL ONE (13:39)
[2020-06-24] MEDS ORDERED: *HR* Midazolam HCl 2 MG/2 ML VIAL ONE (13:40)
[2020-06-25] MEDS: Aspirin 81 MG TAB.CHEW PO SCH (09:11)
[2020-06-25] MEDS: Metoprolol XL (24 HR) Succ 25 MG TAB.ER.24H PO SCH (09:11)
[2020-06-25] MEDS: Acetaminophen 325 MG TABLET PO PRN (20:29)
[2020-06-26] MEDS: Aspirin 81 MG TAB.CHEW PO SCH (08:30)
[2020-06-26] MEDS: Metoprolol XL (24 HR) Succ 25 MG TAB.ER.24H PO SCH (08:30)
[2020-06-26] MEDS: Acetaminophen 325 MG TABLET PO PRN (08:38)
[2020-06-27] MEDS: Aspirin 81 MG TAB.CHEW PO SCH (07:59)
[2020-06-27] MEDS: Metoprolol XL (24 HR) Succ 25 MG TAB.ER.24H PO SCH (08:00)
[2020-06-27] MEDS: Ondansetron ODT 4 MG TAB.RAPDIS SL PRN (19:37)
[2020-06-28] MEDS: Acetaminophen 325 MG TABLET PO PRN (00:45)
[2020-06-28] MEDS: Aspirin 81 MG TAB.CHEW PO SCH (07:56)
[2020-06-28] MEDS: Metoprolol XL (24 HR) Succ 25 MG TAB.ER.24H PO SCH (07:56)
[2020-06-29] MEDS: Acetaminophen 325 MG TABLET PO PRN (08:21)
[2020-06-29] MEDS: Aspirin 81 MG TAB.CHEW PO SCH (08:21)
[2020-06-29] MEDS: Metoprolol XL (24 HR) Succ 25 MG TAB.ER.24H PO SCH (08:43)
[2020-06-30] MEDS: Metoprolol XL (24 HR) Succ 25 MG TAB.ER.24H PO SCH (08:37)
[2020-06-30] MEDS: Aspirin 81 MG TAB.CHEW PO SCH (08:38)
[2020-07-01] MEDS: Aspirin 81 MG TAB.CHEW PO SCH (09:14)
[2020-07-01] MEDS: Metoprolol XL (24 HR) Succ 25 MG TAB.ER.24H PO SCH (09:15)
[2020-07-02] MEDS: Aspirin 81 MG TAB.CHEW PO SCH (08:58)
[2020-07-02] MEDS: Metoprolol XL (24 HR) Succ 25 MG TAB.ER.24H PO SCH (08:58)
[2020-07-03] MEDS: Acetaminophen 325 MG TABLET PO PRN ×2 (03:27→19:39)
[2020-07-03] MEDS: Aspirin 81 MG TAB.CHEW PO SCH (07:06)
[2020-07-03] MEDS: Metoprolol XL (24 HR) Succ 25 MG TAB.ER.24H PO SCH (07:07)
[2020-07-04] MEDS: Aspirin 81 MG TAB.CHEW PO SCH (06:55)
[2020-07-04] MEDS: Metoprolol XL (24 HR) Succ 25 MG TAB.ER.24H PO SCH (06:55)
[2020-07-05] MEDS: Metoprolol XL (24 HR) Succ 25 MG TAB.ER.24H PO SCH (09:46)
[2020-07-05] MEDS: Aspirin 81 MG TAB.CHEW PO SCH (09:46)
[2020-07-05] MEDS: Acetaminophen 325 MG TABLET PO PRN (16:03)
[2020-07-06] MEDS: Aspirin 81 MG TAB.CHEW PO SCH (08:42)
[2020-07-06] MEDS: Metoprolol XL (24 HR) Succ 25 MG TAB.ER.24H PO SCH (08:42)
[2020-07-07] MEDS: Aspirin 81 MG TAB.CHEW PO SCH (07:58)
[2020-07-07] MEDS: Metoprolol XL (24 HR) Succ 25 MG TAB.ER.24H PO SCH (07:59)
[2020-07-08] MEDS: Aspirin 81 MG TAB.CHEW PO SCH (08:06)
[2020-07-08] MEDS: Metoprolol XL (24 HR) Succ 25 MG TAB.ER.24H PO SCH (08:06)
[2020-07-09 03:28] LABS: Eosinophils % 2.7 %; Immature Granulocytes % 0.2 % (0-4); Red Cell Distribution Width 25.8 % (11.5-14.5)
[2020-07-09 03:29] LABS: Basophils % 0.1 %; Eosinophils # 0.3 K/mcL (0.0-0.6); Hematocrit 33.3 % (37.5-50.1); Hemoglobin 9.1 g/dL (12.9-16.9); Lymphocytes # 2.2 K/mcL (0.6-4.6); Lymphocytes % 23.1 %; Mean Corpuscular HGB Conc 27.3 g/dL (31.6-35.5); Mean Corpuscular Hemoglobin 21.4 pg (28.0-33.3); Mean Corpuscular Volume 78.2 fL (83.0-100.0); Mean Platelet Volume 9.1 fL (9.4-12.4); Monocytes % 10.6 %; Platelet Count 439 K/mcL (140-400); Red Blood Count 4.26 M/mcL (4.19-5.50); Segmented Neutrophils % 63.3 %; White Blood Count 9.5 K/mcL (4.3-11.1)
[2020-07-09 03:47] LABS: BUN/Creatinine Ratio 48 (6-26); Blood Urea Nitrogen 28 mg/dL (8-23); Calcium 9.3 mg/dL (8.6-10.3); Carbon Dioxide 30 mEq/L (23-29); Chloride 102 mEq/L (98-107); Glucose 126 mg/dL (70-105); Osmolality,Calculated 293 (280-300); Potassium 4.2 mEq/L (3.5-5.1); Sodium 138 mEq/L (136-145); eGFR For African Americans > 60 (> 60); eGFR For Non-African Americans > 60 (> 60)
[2020-07-09 04:57] LABS: Anisocytosis 1+ (Not Present); Hypochromasia Present (Not Present); Platelet Estimate Normal (Normal); Poikilocytosis 1+ (Not Present)
[2020-07-09] MEDS: Aspirin 81 MG TAB.CHEW PO SCH (06:31)
[2020-07-09] MEDS: Metoprolol XL (24 HR) Succ 25 MG TAB.ER.24H PO SCH (06:31)
[2020-07-09] MEDS: Acetaminophen 325 MG TABLET PO PRN (06:37)
[2020-07-09 15:02] LABS: Bacteria,Urine Few per hpf (None-Few); Bilirubin,Urine Negative (Negative); Blood,Urine Negative (Negative); Clarity,Urine Turbid (Clear); Color,Urine Yellow (Yellow); Glucose,Urine (UA) Normal (Normal); Hyaline Casts,Urine Few per lpf (None Seen); Ketones,Urine Negative (Negative); Leukocyte Esterase,Urine Large (Negative); Mucus,Urine Few per lpf (None-Few); Nitrite,Urine Positive (Negative); Protein,Urine 30 mg/dL (Neg-Trace); Renal Epithelial Cells,Urine Few per hpf (None-Few); Specific Gravity,Urine 1.027 (1.010-1.025); Urobilinogen,Urine Normal (Normal); WBC,Urine TNTC per hpf (0-3)
[2020-07-10] MEDS: Aspirin 81 MG TAB.CHEW PO SCH (07:24)
[2020-07-10] MEDS: Metoprolol XL (24 HR) Succ 25 MG TAB.ER.24H PO SCH (07:25)
[2020-07-10] MEDS: Ondansetron ODT 4 MG TAB.RAPDIS SL PRN (10:00)
[2020-07-10] MEDS: Acetaminophen 325 MG TABLET PO PRN (19:11)
[2020-07-11] MEDS: Metoprolol XL (24 HR) Succ 25 MG TAB.ER.24H PO SCH (07:12)
[2020-07-11] MEDS: Aspirin 81 MG TAB.CHEW PO SCH (07:12)
[2020-07-12] MEDS: Metoprolol XL (24 HR) Succ 25 MG TAB.ER.24H PO SCH (09:15)
[2020-07-12] MEDS: Aspirin 81 MG TAB.CHEW PO SCH (09:15)
[2020-07-13] MEDS: Aspirin 81 MG TAB.CHEW PO SCH (07:40)
[2020-07-13] MEDS: Metoprolol XL (24 HR) Succ 25 MG TAB.ER.24H PO SCH (07:41)
[2020-07-14] MEDS: Aspirin 81 MG TAB.CHEW PO SCH (07:12)
[2020-07-14] MEDS: Metoprolol XL (24 HR) Succ 25 MG TAB.ER.24H PO SCH (07:13)
[2020-07-14] MEDS: Acetaminophen 325 MG TABLET PO PRN (15:51)
[2020-07-15 06:29] LABS: Basophils % 0.2 %; Eosinophils # 0.1 K/mcL (0.0-0.6); Eosinophils % 1.6 %; Hematocrit 32.6 % (37.5-50.1); Hemoglobin 9.3 g/dL (12.9-16.9); Immature Granulocytes % 0.2 % (0-4); Lymphocytes # 1.9 K/mcL (0.6-4.6); Lymphocytes % 22.7 %; Mean Corpuscular HGB Conc 28.5 g/dL (31.6-35.5); Mean Corpuscular Hemoglobin 22.6 pg (28.0-33.3); Mean Corpuscular Volume 79.3 fL (83.0-100.0); Mean Platelet Volume 9.7 fL (9.4-12.4); Monocytes # 0.9 K/mcL (0.0-1.3); Neutrophils # 5.6 K/mcL (1.6-8.9); Platelet Count 496 K/mcL (140-400); Red Blood Count 4.11 M/mcL (4.19-5.50); Red Cell Distribution Width 24.3 % (11.5-14.5); Segmented Neutrophils % 65.3 %; White Blood Count 8.5 K/mcL (4.3-11.1)
[2020-07-15 06:54] LABS: Alanine Aminotransferase 36 Units/L (7-52); Albumin 3.2 g/dL (3.5-5.7); Alkaline Phosphatase 121 Units/L (34-104); Aspartate Amino Transferase 27 Units/L (13-39); BUN/Creatinine Ratio 45 (6-26); Bilirubin,Total 0.6 mg/dL (0.3-1.0); Blood Urea Nitrogen 22 mg/dL (8-23); Calcium 9.2 mg/dL (8.6-10.3); Carbon Dioxide 31 mEq/L (23-29); Chloride 100 mEq/L (98-107); Globulin 3.2 g/dL (2.4-3.5); Glucose 105 mg/dL (70-105); Magnesium 1.9 mg/dL (1.6-2.6); Osmolality,Calculated 288 (280-300); Potassium 4.2 mEq/L (3.5-5.1); Sodium 137 mEq/L (136-145); Total Protein 6.4 g/dL (6.4-8.9); eGFR For African Americans > 60 (> 60); eGFR For Non-African Americans > 60 (> 60)
[2020-07-15 06:57] LABS: Anisocytosis 1+ (Not Present); Hypochromasia Present (Not Present); Ovalocytes 1+ (Not Present); Poikilocytosis 1+ (Not Present); Polychromasia 1+ (Not Present)
[2020-07-15 06:58] LABS: Platelet Estimate Normal (Normal)
[2020-07-15] MEDS: Metoprolol XL (24 HR) Succ 25 MG TAB.ER.24H PO SCH (07:55)
[2020-07-15] MEDS: Aspirin 81 MG TAB.CHEW PO SCH (07:55)
[2020-07-16] MEDS: Metoprolol XL (24 HR) Succ 25 MG TAB.ER.24H PO SCH (07:30)
[2020-07-16] MEDS: Aspirin 81 MG TAB.CHEW PO SCH (07:30)
[2020-07-16] MEDS: Acetaminophen 325 MG TABLET PO PRN (07:33)
[2020-07-17] MEDS: Metoprolol XL (24 HR) Succ 25 MG TAB.ER.24H PO SCH (08:27)
[2020-07-17] MEDS: Aspirin 81 MG TAB.CHEW PO SCH (08:27)
[2020-07-18] MEDS: Acetaminophen 325 MG TABLET PO PRN (00:35)
[2020-07-18 06:45] VITALS: BP 105/56
[2020-07-18] MEDS: Aspirin 81 MG TAB.CHEW PO SCH (08:15)
[2020-07-18] MEDS: Metoprolol XL (24 HR) Succ 25 MG TAB.ER.24H PO SCH (08:16)
== END 2020-07-18 12:08 | disposition home health service (06) | DRG 64 ==
LOC: EMEROOARM 12:24 → 2ANU 12:24 → SUATTDRO 18:38 → 2ANU 19:30
PROVIDERS: ADMIT Internal Medicine; ATTEND Internal Medicine